=== PATIENT | male | born 1955 | race Caucasian/White ===

== ENCOUNTER 2019-07-09 08:02 | Emergency (ER) | payer OTHER, SELFPAY ==
[2019-07-09] VITALS (50 sets, daily range): BP systolic 132–167; BP diastolic 69–95; PULSE 93–126; RESP 14–33; TEMP 36.3; O2SAT 84–95
--- NOTE | 2019-07-09 08:08 | W.ED.GENAD ---
Discharge Plan Disposition Patient Disposition: [facility] Condition: Serious Discharge Details Chief Complaint: SOB Clinical Impression: Acute saddle pulmonary embolism, Bilateral pulmonary embolism Primary Care Provider: [facility] ED Provider: Radha Aguilera Home Meds and New Rx's Prescriptions: No Action omeprazole 20 MG capsule,delayed release(DR/EC) 20 mg PO BID RF: 0 furosemide 40 MG tablet 40 mg PO DAILY RF: 0 glyburide 2.5 MG tablet 2.5 mg PO DAILY RF: 0 sertraline 100 MG tablet 100 mg PO DAILY RF: 0 Foradil Aerolizer 1 PUFF capsule, w/inhalation device 1 cap Inhalation BID RF: 0 tamsulosin 0.4 MG capsule 0.4 mg PO DAILY RF: 0 metoprolol tartrate 25 MG tablet 25 mg PO DAILY RF: 0 albuterol sulfate [Proventil HFA] 1 PUFF HFA aerosol inhaler 1 puff PO PRN PRNRF: 0 spironolactone 100 MG tablet 150 mg PO DAILY Qty: 0 RF: 0 albuterol sulfate 2.5 MG/3 ML solution for nebulization 2.5 mg UPD Q2H PRN PRNRF: 0 Medical Decision Making 0810 -- 64-year-old male with a history of obesity, CHF, COPD, hypertension, hyperlipidemia, diabetes and GERD presents with intermittent chest tightness and shortness of breath for the past 2 weeks. Patient states his chest tightness is worse with deep breath, without radiation and sometimes better with rest. He states that shortness of breath is worse with exertion and when lying flat. He has been using a recliner for sleep for several years. He also has a history of sleep apnea but does not use CPAP as it has been uncomfortable for him. He states last night he felt like he stopped breathing when falling asleep and he states that this has never happened before. He admits to cough with occasional white sputum. He denies any known fever but does admit to decreased appetite recently. He denies any recent hospital admissions, recent travel, recent surgeries. He does admit to chronic intermittent leg swelling for which he uses compressive device as needed. Heart rate 120s, respirations mid 20s and O2 sat 89% on room air on arrival. He has good air movement throughout without obvious crackles, rales, wheezing or rhonchi. He has no lower extremity edema. EKG on arrival notes a rate of 129, sinus with occasional PVCs but no acute ST ischemic changes. Differential diagnosis includes PE, acute CHF, acute COPD, ACS, arrhythmia, dehydration, pneumonia, electrolyte abnormality. Do not suspect acute CHF or acute COPD as he has no obvious lung findings. Will give a DuoNeb and small bolus IV fluids. Labs ordered on arrival and note a normal white blood cell count, electrolytes. Magnesium 1.6, will replete. Troponin negative. BNP 421. Will refer for CT chest to rule out PE. 0910 -- pt reassessed - admits to some improvement in shortness of breath. Still with clear breath sounds, no wheezing, crackles or rhonchi. O2 sat 85% on RA, increased to 92% on 2L. 0940 -- CT reviewed with vrad -saddle pulmonary embolus with pulmonary emboli extending into upper lobes, right middle lobe and both lower lobes. Also noted to right ventricular dysfunction and unruptured aneurysm of the ascending aorta 5 cm with opacities left lower lobe which may represent atelectasis or pneumonia. Pt has no report of fever with purulent sputum with normal WBC so will hold on antibiotics at that time. Placed call to the [place] as patient is followed there. Also [facility] -- [facility]w [facility] - feels that pt is most appropriate for transfer to tertiary care facility. 1220 --patient accepted for transfer to [facility] to the ICU -accepting physician Dr. Desai. No further medication recommendations at this time. Patient may be appropriate for catheter driven thrombolysis. Patient hemodynamically stable without acute complaints prior to transfer. BP 134/73. HR 110s. Medical Records Medical records reviewed: Yes I reviewed the patient's medical records. Imaging Data Radiologic Study: Radiologist's impression: CT Angiography Chest With Contrast Exam date and time: 07/09/2019 8:55 AM Age: 64 years old Clinical indication: Shortness of breath TECHNIQUE: Imaging protocol: Computed tomographic angiography of the chest with intravenous contrast. 3D rendering: MIP and/or 3D reconstructed images were created by the technologist. COMPARISON: CR CHEST 2 VIEWS PA,LAT 09/02/2015 10:48 AM FINDINGS: Pulmonary arteries: Saddle pulmonary embolus. Pulmonary emboli extend into the upper lobes and right middle lobe and lingula and both lower lobes. Aorta: Unruptured aneurysm of the ascending aorta 5 cm. Lungs: Opacities in the left lower lobe may represent atelectasis or pneumonia. Pleural space: Unremarkable. No pneumothorax. No pleural effusion. Heart: Right ventricular dysfunction. Gallbladder and bile ducts: Gallstones in the gallbladder. Lymph nodes: Unremarkable. No enlarged lymph nodes. Bones/joints: Metallic foreign bodies within right ribs and right hemithorax Soft tissues: Unremarkable. IMPRESSION: 1. Saddle pulmonary embolus. Pulmonary emboli extend into the upper lobes and right middle lobe and lingula and both lower lobes. 2. Right ventricular dysfunction. 3. Unruptured aneurysm of the ascending aorta 5 cm. 4. Opacities in the left lower lobe may represent atelectasis or pneumonia. 5. Gallstones in the gallbladder. Lab Data Lab results reviewed: Yes I reviewed the patient's lab results. Labs: Laboratory Tests Range/Units 07/09/19 07/09/19 07/09/19 08:10 08:10 08:10 WBC (4.4-10.8) k/cumm 6.68 RBC (4.50-6.00) m/cumm 4.44 L Hgb (13.5-17.5) g/dL 15.3 Hct (40.0-50.0) % 45.2 MCV (80-95) fL 101.8 H MCH (27.0-33.0) pg 34.5 H MCHC (32.0-36.0) g/dL 33.8 RDW (11.8-14.1) % 15.0 H Plt Count (130-400) x1000/uL 170 MPV (8.0-11.0) fL 10.2 Immature Gran % % 0.1 Neutrophils % 50.6 Lymphocytes % 35.8 Monocytes % 9.4 Eosinophils % 3.4 Basophils % 0.7 Absolute Neutrophils (1.2-6.7) k/cumm 3.37 Absolute Lymphocytes (1.2-3.4) k/cumm 2.39 Absolute Monocytes (0.11-0.7) k/cumm 0.63 Absolute Eosinophils (0.0-0.7) k/cumm 0.23 Absolute Basophils (0.0-0.2) k/cumm 0.05 PT (9.3-11.0) sec INR (0.9-1.1) APTT (21.0-31.4) sec Sodium (136-145) mmol/L 138 Potassium (3.5-5.1) mmol/L 3.6 Chloride (98-107) mmol/L 100 Carbon Dioxide (21.0-32.0) mmol/L 25.4 Anion Gap (3-11) mmol/L 12.6 H BUN (7-18) mg/dL 12 Creatinine (0.70-1.30) mg/dL 0.98 Estimated GFR/1.73 m2 (mL/min/1.73m2) >= 60.00 Glucose (74-106) mg/dL 121 H Calcium (8.5-10.1) mg/dL 8.6 Magnesium (1.8-2.4) mg/dL 1.6 L Total Bilirubin (0.2-1.0) mg/dL 1.4 H AST (15-37) U/L 23 ALT (16-63) U/L 9 L Alkaline Phosphatase (46-116) U/L 94 Troponin I (<0.06) ng/Ml < 0.05 NT-Pro-B Natriuret Pep (<300) pg/mL 421 H Total Protein (6.4-8.2) g/dL 8.4 H Albumin (3.4-5.0) g/dL 3.4 Range/Units 07/09/19 08:10 WBC (4.4-10.8) k/cumm RBC (4.50-6.00) m/cumm Hgb (13.5-17.5) g/dL Hct (40.0-50.0) % MCV (80-95) fL MCH (27.0-33.0) pg MCHC (32.0-36.0) g/dL RDW (11.8-14.1) % Plt Count (130-400) x1000/uL MPV (8.0-11.0) fL Immature Gran % % Neutrophils % Lymphocytes % Monocytes % Eosinophils % Basophils % Absolute Neutrophils (1.2-6.7) k/cumm Absolute Lymphocytes (1.2-3.4) k/cumm Absolute Monocytes (0.11-0.7) k/cumm Absolute Eosinophils (0.0-0.7) k/cumm Absolute Basophils (0.0-0.2) k/cumm PT (9.3-11.0) sec 11.4 H INR (0.9-1.1) 1.1 APTT (21.0-31.4) sec 24.9 Sodium (136-145) mmol/L Potassium (3.5-5.1) mmol/L Chloride (98-107) mmol/L Carbon Dioxide (21.0-32.0) mmol/L Anion Gap (3-11) mmol/L BUN (7-18) mg/dL Creatinine (0.70-1.30) mg/dL Estimated GFR/1.73 m2 (mL/min/1.73m2) Glucose (74-106) mg/dL Calcium (8.5-10.1) mg/dL Magnesium (1.8-2.4) mg/dL Total Bilirubin (0.2-1.0) mg/dL AST (15-37) U/L ALT (16-63) U/L Alkaline Phosphatase (46-116) U/L Troponin I (<0.06) ng/Ml NT-Pro-B Natriuret Pep (<300) pg/mL Total Protein (6.4-8.2) g/dL Albumin (3.4-5.0) g/dL ECG Data Attestation: I personally reviewed and interpreted this ECG (s) as follows: Interpretation: rate of 129, sinus, occasional PVCs, no acute ST elevation or depression. KS 134, QTc 457, QRS 83. HPI General Mode of arrival: wheelchair. Date/Time Provider Initiated Documentation: 07/09/19 08:06. Limitations to Documentation: no limitations. Information obtained by: patient. History of Present Illness 64 year old M presents to the emergency department with the chief complaint of shortness of breath and chest discomfort , Quality is described as other (intermittent chest tightness), and is localized to the chest. Patient reports no radiation. Patient started experiencing this week(s) (2) and it has been intermittent. Rest improves symptom(s), Other factors that worsen symptoms (deep breath) . Patient notes chest pain (intermittent chest tightness, worse with exertion/deep breath), cough (occasional white sputum), loss of appetite (for 2 weeks) and shortness of breath (intermittent, worse with exertion/laying flat); denies fever/chills, headaches, malaise, nausea/vomiting, rash, seizure, syncope and weakness. Patient did receive the following treatments prior to arrival, none Related Data Home Medications Medication Instructions Recorded Confirmed Foradil Aerolizer 1 cap INHALATION BID 08/18/12 07/09/19 furosemide 40 mg PO DAILY 08/18/12 07/09/19 glyburide 2.5 mg PO DAILY 08/18/12 07/09/19 metoprolol tartrate 25 mg PO DAILY 08/18/12 07/09/19 omeprazole 20 mg PO BID 08/18/12 07/09/19 sertraline 100 mg PO DAILY 08/18/12 07/09/19 tamsulosin 0.4 mg PO DAILY 08/18/12 07/09/19 albuterol sulfate [Proventil HFA] 1 puff PO PRN PRN 09/02/15 07/09/19 albuterol sulfate 2.5 mg UPD Q2H PRN PRN vial 09/04/15 07/09/19 spironolactone 150 mg PO DAILY #0 09/04/15 07/09/19 Previous Rx's Medication Instructions Recorded albuterol sulfate 2.5 mg UPD Q2H PRN PRN vial 09/04/15 spironolactone 150 mg PO DAILY #0 09/04/15 Allergies Allergy/AdvReac Type Severity Reaction Status Date / Time niacin AdvReac Mild flushed Unverified 07/09/19 08:18 MRI AdvReac Contraindic Uncoded 07/09/19 08:18 ated Review of Systems All systems reviewed & are unremarkable except as noted in HPI and below Constitutional Constitutional: Reports as per HPI, Denies chills, Denies fever(s) and Reports poor appetite Eyes Eyes: Denies blurry vision ENT Ears, Nose, Mouth, and Throat: Denies dizziness, Denies sore throat and Denies throat swelling Cardiovascular Cardiovascular: Reports chest pain and Reports dyspnea Respiratory Respiratory: Reports cough and Reports dyspnea Gastrointestinal Gastrointestinal: Denies abdominal pain, Denies diarrhea and Denies vomiting Genitourinary Genitourinary: Denies hematuria and Denies dysuria Musculoskeletal Musculoskeletal: Denies back pain and Denies numbness Integumentary/Breasts Skin/Breast: Denies lesions and Denies rash Neurologic Neurologic: Denies dizziness, Denies focal weakness and Denies numbness Allergic/Immunologic Allergic/Immunologic: Denies throat swelling [facility] Medical History (Updated 07/09/19 @ 10:12 by Radha Aguilera DO) CHF (congestive heart failure) (Chronic) COPD (chronic obstructive pulmonary disease) (Chronic) Diabetes (Chronic) GERD (gastroesophageal reflux disease) (Chronic) HTN (hypertension) (Chronic) Hx of hyperlipidemia (Acute) Obesity (Chronic) Surgical History (Updated 07/09/19 @ 13:11 by Radha Aguilera DO) No significant past surgical history (Acute) Social History Smoking/Tobacco Use Status: Former Tobacco Use Alcohol Intake: former Drug use: Never Substance use type: does not use Exam Const General: cooperative, healthy appearing and no acute distress HENMT Head: normal to inspection Face and sinus: normal facial exam Eyes General: appearance normal, both eyes and all related structures EOM: EOM intact bilaterally Neck Neck: normal visual inspection and No submandibular swelling Lymphatic: no lymphadenopathy noted Chest Chest: normal inspection of the chest and no tenderness Resp Effort & Inspection: normal respiratory effort and able to speak in complete sentences Auscultation: clear to auscultation bilaterally Cardio Rate: regular rate Rhythm: regular rhythm GI Inspection: normal to inspection and obesity Palpation: soft, not firm, not rigid and nontender Auscultation: normal bowel sounds Skin General skin exam: no rashes or lesions noted Neuro General: alert, awake and oriented x3 Cognition: normal cognition Speech: speech normal Motor: muscle tone normal throughout Sensory Exam: no sensory deficits noted Extrem General: normal to inspection, full ROM, normal capillary refill, no calf tenderness bilaterally and no edema Psych Appearance: grossly normal Mental Status: mental status grossly normal Speech and Movement: speech and movement normal Affect: normal affect
[2019-07-09 08:34] LABS: Abs Immature Grans 0.01 k/cumm (0.0-0.09); Absolute Basophil Count 0.05 k/cumm (0.0-0.2); Absolute Eosinophil Count 0.23 k/cumm (0.0-0.7); Absolute Lymphocyte Count 2.39 k/cumm (1.2-3.4); Absolute Monocyte Count 0.63 k/cumm (0.11-0.7); Absolute Neutrophil Count 3.37 k/cumm (1.2-6.7); Basophils % 0.7; Eosinophils % 3.4; HCT 45.2 % (40.0-50.0); HGB 15.3 g/dL (13.5-17.5); Immature Grans % 0.1 %; Lymphocytes % 35.8; Mean Corp. HGB Concentration 33.8 g/dL (32.0-36.0); Mean Corpuscular Hemoglobin 34.5 pg (27.0-33.0); Mean Corpuscular Volume 101.8 fL (80-95); Mean Platelet Volume 10.2 fL (8.0-11.0); Monocytes % 9.4; Neutrophils % 50.6; Platelet Count 170 x1000/uL (130-400); RBC 4.44 m/cumm (4.50-6.00); White Blood Cell Count 6.68 k/cumm (4.4-10.8)
[2019-07-09] MEDS: Albuterol/Ipratropium 3 ML UPD VIAL UPD (08:34)
[2019-07-09] MEDS: Normal Saline 250 ML IV (08:36)
[2019-07-09 08:47] LABS: ALT 9 U/L (16-63); AST 23 U/L (15-37); Albumin 3.4 g/dL (3.4-5.0); Alkaline Phosphatase 94 U/L (46-116); Anion Gap 12.6 mmol/L (3-11); BUN 12 mg/dL (7-18); Bilirubin, Total 1.4 mg/dL (0.2-1.0); CO2 25.4 mmol/L (21.0-32.0); CREATININE 0.98 mg/dL (0.70-1.30); Calcium 8.6 mg/dL (8.5-10.1); Chloride 100 mmol/L (98-107); Glucose 121 mg/dL (74-106); Magnesium 1.6 mg/dL (1.8-2.4); Potassium 3.6 mmol/L (3.5-5.1); Sodium 138 mmol/L (136-145); Total Protein 8.4 g/dL (6.4-8.2)
[2019-07-09 08:50] LABS: Troponin I < 0.05 ng/Ml (<0.06)
[2019-07-09 08:53] LABS: NT-proBNP 421 pg/mL (<300)
[2019-07-09] MEDS: MAGNESIUM SULFATE 1 GM/100 ML BAG IVPB (09:03)
--- NOTE | 2019-07-09 09:12 | DI.CT_ITS ---
EXAM: CT CHEST PE CTA CLINICAL HISTORY: shortness of breath, hypoxia, pleuritic chest pain. TECHNIQUE: Imaging Protocol: Axial CT angiography was performed with multi-slice acquisition and mu lti-planar and/or 3D reconstructions. CONTRAST MATERIAL: Intravenous: Omnipaque 350 Contrast volume:88 mL COMPARISON: CHEST 2 VIEWS PA,LAT from 09/02/2015 FINDINGS: Pulmonary Arteries: There is a saddle embolus. There are emboli in pulmonary artery branches to all lobes of the lungs. Tracheobronchial tree: Patent where visualized. Mediastinum and Mary: No dominant adenopathy or fluid collection. Pulmonary parenchyma: There is an infiltrate seen in the left lower lobe. This may represent atelect asis or pneumonia. Pleura: No effusion or pneumothorax. Heart: There is evidence of right heart strain. Marked coronary artery calcification is present. No pericardial effusion is present. Aorta: The ascending aorta is aneurysmally dilated up to 5 centimeters. No rupture or dissection. T here is atherosclerosis. Upper abdomen: Cholelithiasis. Bones: Degenerative changes.There are again seen metallic densities overlying the right hemithorax. These are present on the prior chest x-ray. IMPRESSION: 1. Findings of pulmonary embolic disease with a saddle embolus. Pulmonary emboli are present involv ing all lobes of the lung. 2. Findings of right heart strain. 3. Unruptured 5 centimeter ascending aortic aneurysm. 4. Infiltrate in the left lower lobe which may represent atelectasis or pneumonia. 5. Cholelithiasis. DATA REPOSITORY: All CT scans at this facility are submitted to the National Radiology Data Registry (NRDR) Dose Index Registry (DIR) with the [employer] ([employer]). RADIATION OPTIMIZATION: All CT scans at this facility use at least one of these dose optimization te chniques: automated exposure control; mA and/or kV adjustment per patient size (includes targeted exa ms where dose is matched to clinical indication); or iterative reconstruction.
[2019-07-09] MEDS: Omnipaque 350 MG/ML 100 ML BTL 88 ML IJ (09:14)
[2019-07-09] MEDS: Normal Saline - Diluent 50 ML VIAL IV (09:22)
--- NOTE | 2019-07-09 09:45 | DI.VRAD_ITS ---
PROCEDURE INFORMATION: Exam: CT Angiography Chest With Contrast Exam date and time: 07/09/2019 8:55 AM Age: 64 years old Clinical indication: Shortness of breath TECHNIQUE: Imaging protocol: Computed tomographic angiography of the chest with intravenous contrast. 3D rendering: MIP and/or 3D reconstructed images were created by the technologist. COMPARISON: CR CHEST 2 VIEWS PA,LAT 09/02/2015 10:48 AM FINDINGS: Pulmonary arteries: Saddle pulmonary embolus. Pulmonary emboli extend into the upper lobes and right middle lobe and lingula and both lower lobes. Aorta: Unruptured aneurysm of the ascending aorta 5 cm. Lungs: Opacities in the left lower lobe may represent atelectasis or pneumonia. Pleural space: Unremarkable. No pneumothorax. No pleural effusion. Heart: Right ventricular dysfunction. Gallbladder and bile ducts: Gallstones in the gallbladder. Lymph nodes: Unremarkable. No enlarged lymph nodes. Bones/joints: Metallic foreign bodies within right ribs and right hemithorax Soft tissues: Unremarkable. IMPRESSION: 1. Saddle pulmonary embolus. Pulmonary emboli extend into the upper lobes and right middle lobe and lingula and both lower lobes. 2. Right ventricular dysfunction. 3. Unruptured aneurysm of the ascending aorta 5 cm. 4. Opacities in the left lower lobe may represent atelectasis or pneumonia. 5. Gallstones in the gallbladder. Dictated and Authenticated by: Dale Wu MD. Ordering:AMANDA Garcia MD
[2019-07-09 09:47] LABS: INR 1.1 (0.9-1.1); PTT Activated 24.9 sec (21.0-31.4); Prothrombin Time 11.4 sec (9.3-11.0)
[2019-07-09] MEDS: Normal Saline 500 ML IV (10:16)
[2019-07-09] MEDS: Metoprolol 25 MG TAB PO (11:31)
[2019-07-09] MEDS: Omeprazole 20 MG CAPCR PO (11:31)
[2019-07-09] MEDS: Tamsulosin 0.4 MG CAPCR PO (11:31)
[2019-07-09] MEDS: Spironolactone 50 MG TAB PO (11:32)
[2019-07-09] MEDS: Furosemide 40 MG TAB PO (11:32)
[2019-07-09] MEDS: Sertraline 50 MG TAB 100 MG PO (11:32)
[2019-07-09] MEDS: glyBURIDE 5 MG TAB 2.5 MG PO (11:32)
[2019-07-09] MEDS: Spironolactone 50 MG TAB 100 MG PO (11:32)
== END 2019-07-09 13:21 | disposition short-term general hospital (02) ==
PROVIDERS: Emergency Provider Physician Assistant
DX: I26.92 Saddle embolus of pulmonary artery without acute cor pulmonale (principal); I26.99 Other pulmonary embolism without acute cor pulmonale; E83.42 Hypomagnesemia; I71.2 Thoracic aortic aneurysm, without rupture; E11.9 Type 2 diabetes mellitus without complications; Z79.84 Long term (current) use of oral hypoglycemic drugs; J44.9 Chronic obstructive pulmonary disease, unspecified; Z87.891 Personal history of nicotine dependence; I11.0 Hypertensive heart disease with heart failure; I50.9 Heart failure, unspecified
CPT/HCPCS: 36415; 71275; 80053; 93005; 94640; 96361; 96365; 96372; 99285; 83735; 83880; 84484; 85025; 85610; 85730; 93010; J1650; J3475; J3490; J7620

== ENCOUNTER 2019-07-13 18:46 | Outpatient (REF) | payer OTHER, SELFPAY | END 2019-07-13 19:06 | LOC: LBN 18:46 | DX: R69 Illness, unspecified (principal) | CPT/HCPCS: 85610 ==

== ENCOUNTER 2019-09-04 20:34 | Inpatient (IN) | payer OTHER, SELFPAY ==
[2019-09-04] VITALS (27 sets, daily range): BP systolic 95–150; BP diastolic 58–93; PULSE 88–104; RESP 15–21; TEMP 37; O2SAT 91–97
--- NOTE | 2019-09-04 20:28 | ED.GENADUL_ITS ---
Discharge Plan Disposition Patient Disposition: [facility] INPATIENT Condition: Stable Discharge Details Chief Complaint: GenMedical Clinical Impression: Painless jaundice, Supratherapeutic INR, Transaminitis, Acute inflammation of the pancreas Clinical Impression: (Ruled Out): Jaundice Admit Date/Time: 09/04/19 22:58 Admit Provider: Sandoval Lou Attending Provider: Sandoval Lou Primary Care Provider: Adelina Crespo ED Provider: Radha Aguilera Discharge Data Discharge Date/Time-TO BE ENTERED AT DEPARTURE: 09/05/19 00:18 Medical Decision Making 2039 -- 64-year-old male with a history of morbid obesity, CHF, COPD, diabetes, GERD, hypertension, hyperlipidemia and recent pulmonary embolism on Coumadin who presents for evaluation of jaundice for the past week and for multiple lab abnormalities noted on blood work drawn today outpatient including INR 15, alk phos 783, AST 230, ALT 139, total bilirubin 18.9, indirect bilirubin 14.1. Patient's doctor at the [facility] advised to come to the ED for further evaluation. P vargas has no acute complaints. EKG on arrival notes a rate of 100, sinus with no acute ST ischemic changes. Patient appears significantly jaundiced with scleral icterus. He appears otherwise in no acute distress. His vitals are within normal limits and he appears nontoxic. He has right upper quadrant tenderness to palpation. The [facility] physician note noted that patient has a history of alcoholic cirrhosis and that on 08/22/2019 he is INR was 9.9 at which point it was held until 08/29 and decreased to 3.4. 2129 -- labs reviewed. INR resulted as greater than 8.8. PT greater than 83.4 PTT 69.9. T bili 16.2. AST 227. ALT 147. Alk phos 768. Troponin negative. Lipase normal. 2219 --CT reviewed and notes findings concerning for pancreatitis or possibly pancreatic neoplasm, pseudocyst or abscess, also noted cholelithiasis without cholecystitis or choledocholithiasis. Will give vitamin K p.o. Will plan for admission for recheck of INR and consideration for MRI for further evaluation of pancreas in the setting of painless jaundice. Pt states he would prefer to stay here rather than transfer to [place] 2229 -- d/w hospitalist - accepts pt for admission. Medical Records Medical records reviewed: Yes I reviewed the patient's medical records. Imaging Data Radiologic Study: Radiologist's impression: CT Abdomen And Pelvis With Contrast Exam date and time: 09/04/2019 9:03 PM Age: 64 years old Clinical indication: Abdominal pain; Generalized; Patient HX: Ruq pain, R/O liver disease TECHNIQUE: Imaging protocol: Computed tomography of the abdomen and pelvis with intravenous contrast. Radiation optimization: All CT scans at this facility use at least one of these dose optimization techniques: automated exposure control; mA and/or kV adjustment per patient size (includes targeted exams where dose is matched to clinical indication); or iterative reconstruction. Contrast material: OMNI-PAQUE; Contrast volume: 125 ml; Contrast route: IV; COMPARISON: No relevant prior studies available. FINDINGS: Lungs: The left lung base shows mild atelectatic changes. Liver: Normal. No mass. Gallbladder and bile ducts: There is a 2.8 cm gallstone in the gallbladder lumen. The common bile duct shows mild dilatation to 9 mm and tapers distally without evidence of choledocholithiasis. There is moderate intrahepatic biliary ductal dilatation. Pancreas: There is inflammatory stranding along the head of the pancreas and mild dilatation of the pancreatic duct. Spleen: Normal. No splenomegaly. Adrenals: The adrenal glands are normal. Kidneys and ureters: There are multiple bilateral renal collecting system calcifications, largest in the right kidney measuring 5.5 mm. In the left UVJ there is a minimally obstructing 4 mm calculus. Stomach and bowel: There is severe eccentric thickening of the wall of the gastric antrum with narrowing of the pylorus. There is thickening of the wall of the duodenum. There is inflammatory stranding in the retroperitoneal fat. There is no evidence of small bowel or colonic obstruction. Appendix: The appendix is not identified. Intraperitoneal space: Along the anterolateral surface of the liver and extending to the hepatic flexure, there is an elongated fluid collection measuring 10.4 x 2.2 x 5.2 cm. There is a small amount of free fluid tracking along the root of the mesentery. There is no evidence of free fluid in the pelvis. No line no free intraperitoneal air. Vasculature: There is moderate atherosclerotic calcification of the abdominal aorta and iliac arteries without aneurysm. Lymph nodes: There are nonenlarged common nonspecific retroperitoneal lymph nodes. Bladder: Unremarkable as visualized. Reproductive: Unremarkable as visualized. Bones/joints: The spine demonstrates moderate degenerative changes at multiple levels. Soft tissues: In the subcutaneous soft tissues of the anterior left hemipelvis, there is a 2.3 mm collection perhaps are the subcutaneous injection site, possible hematoma. IMPRESSION: 1. Findings may be secondary to pancreatitis with secondary inflammatory changes of the gastric antrum and duodenal sweep as well as biliary and pancreatic ductal dilatation. However, given severe thickening of the wall of the gastric antrum and pylorus, neoplasm is in the differential diagnosis and correlation with endoscopy is recommended. 2. A fluid collection along the anterolateral aspect of the liver, possibly a pancreatic pseudocyst or abscess. 3. Cholelithiasis without evidence of choledocholithiasis. 4. A minimally obstructing 4 mm calculus in the left UVJ. Bilateral nonobstructing nephrolithiasis. 5. A 2.3 cm fluid collection in the subcutaneous soft tissues of the left anterior hemipelvis suggestive of a hematoma the at an injection site. Lab Data Lab results reviewed: Yes I reviewed the patient's lab results. Labs: Laboratory Tests Range/Units 09/04/19 09/04/19 09/04/19 20:50 20:50 20:50 WBC (4.4-10.8) k/cumm 9.41 RBC (4.50-6.00) m/cumm 3.73 L Hgb (13.5-17.5) g/dL 12.5 L Hct (40.0-50.0) % 34.2 L MCV (80-95) fL 91.7 MCH (27.0-33.0) pg 33.5 H MCHC (32.0-36.0) g/dL 36.5 H RDW (11.8-14.1) % 16.3 H Plt Count (130-400) x1000/uL 225 MPV (8.0-11.0) fL 11.3 H Immature Gran % % 0.2 Neutrophils % 71.0 Lymphocytes % 17.6 Monocytes % 9.2 Eosinophils % 1.6 Basophils % 0.4 Absolute Neutrophils (1.2-6.7) k/cumm 6.67 Absolute Lymphocytes (1.2-3.4) k/cumm 1.66 Absolute Monocytes (0.11-0.7) k/cumm 0.87 H Absolute Eosinophils (0.0-0.7) k/cumm 0.15 Absolute Basophils (0.0-0.2) k/cumm 0.04 PT (9.3-11.0) sec > 83.4 H INR (0.9-1.1) > 8.8 H* APTT (21.0-31.4) sec 69.9 H Sodium (136-145) mmol/L 131 L Potassium (3.5-5.1) mmol/L 3.8 Chloride (98-107) mmol/L 95 L Carbon Dioxide (21.0-32.0) mmol/L 25.0 Anion Gap (3-11) mmol/L 11.0 BUN (7-18) mg/dL 27 H Creatinine (0.70-1.30) mg/dL 1.31 H Estimated GFR/1.73 m2 (mL/min/1.73m2) 54.74 Glucose (74-106) mg/dL 127 H Calcium (8.5-10.1) mg/dL 8.4 L Magnesium (1.8-2.4) mg/dL 1.2 L Total Bilirubin (0.2-1.0) mg/dL 16.2 H AST (15-37) U/L 227 H ALT (16-63) U/L 147 H Alkaline Phosphatase (46-116) U/L 768 H Troponin I (<0.06) ng/Ml < 0.05 Total Protein (6.4-8.2) g/dL 7.8 Albumin (3.4-5.0) g/dL 2.9 L Lipase (73-393) U/L Range/Units 09/04/19 20:50 WBC (4.4-10.8) k/cumm RBC (4.50-6.00) m/cumm Hgb (13.5-17.5) g/dL Hct (40.0-50.0) % MCV (80-95) fL MCH (27.0-33.0) pg MCHC (32.0-36.0) g/dL RDW (11.8-14.1) % Plt Count (130-400) x1000/uL MPV (8.0-11.0) fL Immature Gran % % Neutrophils % Lymphocytes % Monocytes % Eosinophils % Basophils % Absolute Neutrophils (1.2-6.7) k/cumm Absolute Lymphocytes (1.2-3.4) k/cumm Absolute Monocytes (0.11-0.7) k/cumm Absolute Eosinophils (0.0-0.7) k/cumm Absolute Basophils (0.0-0.2) k/cumm PT (9.3-11.0) sec INR (0.9-1.1) APTT (21.0-31.4) sec Sodium (136-145) mmol/L Potassium (3.5-5.1) mmol/L Chloride (98-107) mmol/L Carbon Dioxide (21.0-32.0) mmol/L Anion Gap (3-11) mmol/L BUN (7-18) mg/dL Creatinine (0.70-1.30) mg/dL Estimated GFR/1.73 m2 (mL/min/1.73m2) Glucose (74-106) mg/dL Calcium (8.5-10.1) mg/dL Magnesium (1.8-2.4) mg/dL Total Bilirubin (0.2-1.0) mg/dL AST (15-37) U/L ALT (16-63) U/L Alkaline Phosphatase (46-116) U/L Troponin I (<0.06) ng/Ml Total Protein (6.4-8.2) g/dL Albumin (3.4-5.0) g/dL Lipase (73-393) U/L 114 ECG Data Attestation: I personally reviewed and interpreted this ECG (s) as follows: Interpretation: Rate of 100, sinus, no acute ST elevation or depression. IN 154. QTc 431. QRS 88. HPI General Mode of arrival: EMS . Date/Time Provider Initiated Documentation: 09/04/19 20:42 . Limitations to Documentation: no limitations . Information obtained by: patient . HPI Narrative: Patient is a 64-year-old male with a history of obesity, CHF, COPD, diabetes, GERD, hypertension, hyperlipidemia and recent pulmonary embolism on Coumadin who presents for jaundice over the past week and multiple lab abnormalities drawn on outpatient lab work today including INR 15, bilirubin of 18, direct bilirubin of 14, alk phos of 73, AST of 230, and ALT of 139. [facility] was [facility] to the ED for further evaluation. Patient stated that he was previously an alcoholic but now only drinks occasionally. He states he drank 1 week ago and then drank a half a pint of liquor 3 days ago. He denies any drug use. He states he has no symptoms other than occasionally feeling his chronic back pain. He denies any fever, chest pain, shortness of breath, abdominal pain, vomiting, diarrhea. He denies any other recent new medications including antibiotics. Related Data Home Medications Medication Instructions Recorded Confirmed Foradil Aerolizer 1 cap INHALATION BID 08/18/12 09/04/19 furosemide 40 mg PO DAILY 08/18/12 09/04/19 metoprolol tartrate 25 mg PO DAILY 08/18/12 09/04/19 omeprazole 20 mg PO BID 08/18/12 09/04/19 sertraline 100 mg PO DAILY 08/18/12 09/04/19 tamsulosin 0.4 mg PO DAILY 08/18/12 09/04/19 albuterol sulfate [Proventil HFA] 1 puff PO PRN PRN 09/02/15 09/04/19 albuterol sulfate 2.5 mg UPD Q2H PRN PRN vial 09/04/15 09/04/19 spironolactone 150 mg PO DAILY #0 09/04/15 09/04/19 warfarin 5 mg PO DAILY 09/04/19 09/04/19 Previous Rx's Medication Instructions Recorded albuterol sulfate 2.5 mg UPD Q2H PRN PRN vial 09/04/15 spironolactone 150 mg PO DAILY #0 09/04/15 Allergies Allergy/AdvReac Type Severity Reaction Status Date / Time niacin AdvReac Mild flushed Unverified 09/04/19 20:40 MRI AdvReac Contraindic Uncoded 09/04/19 20:40 ated General MARILUZ: 2 Review of Systems All systems reviewed & are unremarkable except as noted in HPI and below Constitutional Constitutional: Reports as per HPI, Denies chills and Denies fever(s) Eyes Eyes: Denies blurry vision ENT Ears, Nose, Mouth, and Throat: Denies dizziness, Denies sore throat and Denies throat swelling Cardiovascular Cardiovascular: Denies chest pain and Denies dyspnea Respiratory Respiratory: Denies cough and Denies dyspnea Gastrointestinal Gastrointestinal: Denies abdominal pain, Denies diarrhea and Denies vomiting Genitourinary Genitourinary: Denies hematuria and Denies dysuria Musculoskeletal Musculoskeletal: Denies back pain and Denies numbness Integumentary/Breasts Skin/Breast: Denies lesions and Denies rash Neurologic Neurologic: Denies dizziness, Denies localized weakness and Denies numbness Allergic/Immunologic Allergic/Immunologic: Denies throat swelling [facility] Medical History CHF (congestive heart failure) (Chronic) COPD (chronic obstructive pulmonary disease) (Chronic) Diabetes (Chronic) GERD (gastroesophageal reflux disease) (Chronic) HTN (hypertension) (Chronic) Hx of hyperlipidemia (Acute) Obesity (Chronic) Pulmonary embolism (Chronic) jul 2019 Surgical History No significant past surgical history (Acute) Social History Smoking/Tobacco Use Status: Former Tobacco Use Alcohol Intake: former Drug use: Never Substance use type: does not use Details: last drink was half a pint last wednesday Do you feel safe at home: Yes Do you feel safe in your relationship?: Yes Exam Const General: cooperative and no acute distress Nutritional Appearance: obese morbidly obese Orientation: alert, awake and oriented x3 HENMT Head: normal to inspection Face and sinus: normal facial exam Eyes General: appearance normal, both eyes and all related structures Sclera: scleral abnormality bilaterally other (scleral icterus) Pupils: PERRL EOM: EOM intact bilaterally Neck Neck: normal visual inspection and No submandibular swelling Lymphatic: no lymphadenopathy noted Chest Chest: normal inspection of the chest and no tenderness Resp Effort & Inspection: normal respiratory effort and able to speak in complete sentences Auscultation: clear to auscultation bilaterally Cardio Rate: regular rate Rhythm: regular rhythm GI Inspection: no abdominal wall ecchymosis, non-distended, obesity and No caput medusae present Palpation: soft, not firm, not rigid and tender in the RUQ Auscultation: hypoactive bowel sounds Skin General skin exam: jaundice Neuro General: patient alert, patient awake and patient oriented x3 Cognition: normal cognition Speech: speech normal Motor: muscle tone normal throughout Sensory Exam: no sensory deficits noted Extrem General: normal to inspection, full ROM, capillary refill normal, no calf tenderness bilaterally and no edema Psych Appearance: grossly normal Mental Status: mental status grossly normal Speech and Movement: speech and movement normal Affect: normal affect
--- NOTE | 2019-09-04 21:00 | DI.CT_ITS ---
EXAM: CT ABDOMEN PELVIS W CLINICAL HISTORY: RUQ abd pain, r/o liver disease. TECHNIQUE: Imaging Protocol: Axial computed tomography images with coronal and sagittal reformatted images were created and reviewed CONTRAST MATERIAL: Intravenous: Omnipaque 350 Contrast volume:125 cc Oral: no COMPARISON: CT CHEST PE CTA from 07/09/2019 FINDINGS: ABDOMEN: The exam is mildly limited by patient motion. Lung Bases: Mild basilar atelectasis. The heart size is normal. Coronary artery calcifications are seen. There are no pleural or pericardial effusions. There is minimal basilar atelectasis. There i s improvement when compared with the previous CT. Liver: The liver is mildly enlarged and shows mild fatty infiltration. No measurable mass. A fluid c ollection is seen anterior to the right lobe of the liver which was partially seen on the previous ex am. It does not have the appearance of an abscess. Gallbladder and biliary tract: Several gallstones are again noted in the gallbladder. The gallbladde r appears somewhat distended and thick walled. The gallbladder was not fully included on the previou s exam. There is some dilatation of the common bile duct. No common duct stone is visible. The com mon duct measures 11 millimeters. There is mild intrahepatic biliary dilatation.. Pancreas: The pancreas is somewhat atrophic. There is some stranding seen around the pancreas consis tent with pancreatitis. There is adjacent duodenal wall thickening. There is no evidence perforatio n or pseudocyst.. Spleen: Normal. Kidneys: Normal size, contour and axis. There are multiple bilateral renal calculi. No masses seen. There is a stone seen at the left ureterovesical junction measuring 3 millimeters. There is no sig nificant left hydronephrosis. Adrenal glands: No masses seen. Abdominal Aorta: Abdominal portion non-dilated. Moderate calcifications. PELVIS: Bladder: Symmetric distention, no gross wall thickening. Bowel: No obstruction or bowel wall thickening. Peritoneal cavity: No ascites. There are increased areas of increased rounded density in the anterior abdominal wall likely representing injection sites. Bones: Degenerative changes are seen in the lumbar spine.. Reproductive organs: Within normal limits. Lymph nodes: Unremarkable. Impression: 1. Findings consistent with pancreatitis adjacent inflammation of the duodenum. There are gallstone s as well as dilatation of the common bile duct and intrahepatic hepatic ducts. No common duct stone is seen. 2. Bilateral renal calculi. 4 millimeter stone at the left ureterovesical junction without signific ant left hydronephrosis. DATA REPOSITORY: All CT scans at this facility are submitted to the National Radiology Data Registry (NRDR) Dose Index Registry (DIR) with the [employer] (ACR). RADIATION OPTIMIZATION: All CT scans at this facility use at least one of these dose optimization te chniques: automated exposure control; mA and/or kV adjustment per patient size (includes targeted exa ms where dose is matched to clinical indication); or iterative reconstruction.
[2019-09-04 21:01] LABS: Abs Immature Grans 0.02 k/cumm (0.0-0.09); Absolute Basophil Count 0.04 k/cumm (0.0-0.2); Absolute Eosinophil Count 0.15 k/cumm (0.0-0.7); Absolute Lymphocyte Count 1.66 k/cumm (1.2-3.4); Absolute Monocyte Count 0.87 k/cumm (0.11-0.7); Absolute Neutrophil Count 6.67 k/cumm (1.2-6.7); Basophils % 0.4; Eosinophils % 1.6; HCT 34.2 % (40.0-50.0); HGB 12.5 g/dL (13.5-17.5); Immature Grans % 0.2 %; Lymphocytes % 17.6; Mean Corp. HGB Concentration 36.5 g/dL (32.0-36.0); Mean Corpuscular Hemoglobin 33.5 pg (27.0-33.0); Mean Corpuscular Volume 91.7 fL (80-95); Mean Platelet Volume 11.3 fL (8.0-11.0); Monocytes % 9.2; Platelet Count 225 x1000/uL (130-400); RBC 3.73 m/cumm (4.50-6.00); RBC Distribution Width 16.3 % (11.8-14.1); White Blood Cell Count 9.41 k/cumm (4.4-10.8)
[2019-09-04] MEDS: Omnipaque 350 MG/ML 100 ML BTL IJ (21:12)
[2019-09-04] MEDS: Omnipaque 350 MG/ML 50 ML BTL IJ (21:13)
[2019-09-04] MEDS: Normal Saline - Diluent 50 ML VIAL IV (21:13)
[2019-09-04 21:14] LABS: PTT Activated 69.9 sec (21.0-31.4)
[2019-09-04 21:19] LABS: ALT 147 U/L (16-63); AST 227 U/L (15-37); Albumin 2.9 g/dL (3.4-5.0); Alkaline Phosphatase 768 U/L (46-116); BUN 27 mg/dL (7-18); CREATININE 1.31 mg/dL (0.70-1.30); Calcium 8.4 mg/dL (8.5-10.1); Chloride 95 mmol/L (98-107); Estimated GFR 54.74 (mL/min/1.73m2); Glucose 127 mg/dL (74-106); Magnesium 1.2 mg/dL (1.8-2.4); Potassium 3.8 mmol/L (3.5-5.1); Sodium 131 mmol/L (136-145); Total Protein 7.8 g/dL (6.4-8.2)
[2019-09-04 21:26] LABS: Bilirubin, Total 16.2 mg/dL (0.2-1.0); Troponin I < 0.05 ng/Ml (<0.06)
[2019-09-04 21:33] LABS: Lipase 114 U/L (73-393)
[2019-09-04 21:41] LABS: Prothrombin Time > 83.4 sec (9.3-11.0)
[2019-09-04 21:43] LABS: INR > 8.8 (0.9-1.1)
--- NOTE | 2019-09-04 22:33 | DI.VRAD_ITS ---
PROCEDURE INFORMATION: Exam: CT Abdomen And Pelvis With Contrast Exam date and time: 09/04/2019 9:03 PM Age: 64 years old Clinical indication: Abdominal pain; Generalized; Patient HX: Ruq pain, R/O liver disease TECHNIQUE: Imaging protocol: Computed tomography of the abdomen and pelvis with intravenous contrast. Radiation optimization: All CT scans at this facility use at least one of these dose optimization techniques: automated exposure control; mA and/or kV adjustment per patient size (includes targeted exams where dose is matched to clinical indication); or iterative reconstruction. Contrast material: OMNI-PAQUE; Contrast volume: 125 ml; Contrast route: IV; COMPARISON: No relevant prior studies available. FINDINGS: Lungs: The left lung base shows mild atelectatic changes. Liver: Normal. No mass. Gallbladder and bile ducts: There is a 2.8 cm gallstone in the gallbladder lumen. The common bile duct shows mild dilatation to 9 mm and tapers distally without evidence of choledocholithiasis. There is moderate intrahepatic biliary ductal dilatation. Pancreas: There is inflammatory stranding along the head of the pancreas and mild dilatation of the pancreatic duct. Spleen: Normal. No splenomegaly. Adrenals: The adrenal glands are normal. Kidneys and ureters: There are multiple bilateral renal collecting system calcifications, largest in the right kidney measuring 5.5 mm. In the left UVJ there is a minimally obstructing 4 mm calculus. Stomach and bowel: There is severe eccentric thickening of the wall of the gastric antrum with narrowing of the pylorus. There is thickening of the wall of the duodenum. There is inflammatory stranding in the retroperitoneal fat. There is no evidence of small bowel or colonic obstruction. Appendix: The appendix is not identified. Intraperitoneal space: Along the anterolateral surface of the liver and extending to the hepatic flexure, there is an elongated fluid collection measuring 10.4 x 2.2 x 5.2 cm. There is a small amount of free fluid tracking along the root of the mesentery. There is no evidence of free fluid in the pelvis. No line no free intraperitoneal air. Vasculature: There is moderate atherosclerotic calcification of the abdominal aorta and iliac arteries without aneurysm. Lymph nodes: There are nonenlarged common nonspecific retroperitoneal lymph nodes. Bladder: Unremarkable as visualized. Reproductive: Unremarkable as visualized. Bones/joints: The spine demonstrates moderate degenerative changes at multiple levels. Soft tissues: In the subcutaneous soft tissues of the anterior left hemipelvis, there is a 2.3 mm collection perhaps are the subcutaneous injection site, possible hematoma. IMPRESSION: 1. Findings may be secondary to pancreatitis with secondary inflammatory changes of the gastric antrum and duodenal sweep as well as biliary and pancreatic ductal dilatation. However, given severe thickening of the wall of the gastric antrum and pylorus, neoplasm is in the differential diagnosis and correlation with endoscopy is recommended. 2. A fluid collection along the anterolateral aspect of the liver, possibly a pancreatic pseudocyst or abscess. 3. Cholelithiasis without evidence of choledocholithiasis. 4. A minimally obstructing 4 mm calculus in the left UVJ. Bilateral nonobstructing nephrolithiasis. 5. A 2.3 cm fluid collection in the subcutaneous soft tissues of the left anterior hemipelvis suggestive of a hematoma the at an injection site. Dictated and Authenticated by: Gaurav Mackay MD. Ordering:AMANDA Garcia MD
--- NOTE | 2019-09-04 22:35 | HPE_ITS ---
Date of service: 09/04/19 Time of Service: 22:35 Assessment and Plan Assessment and plan (1) Painless jaundice: Status: Acute Assessment and plan: Painless jaundice. Obstructive lesion likely, and consistent with predominant direct bilirubinemia. CT suggests lesion in vicinity of pylorus. However, there is also element of hepatocellular injury, and h/o alcohol, so may be playing a role. There is also recent Coumadin and DILI is to be considered. Will hold Coumadin, give vitamin K, follow LFTS, check COCO and viral serology and advise EGD and/or MRI (will review films with Radiology further in AM). Will have NPO pending possible EGD. Reviewed advance directives, requests Full Code. History of Present Illness History of Present Illness Chief Complaint: painless jaundice Narrative: 64 male with self reported remote history of alcoholic cirrhosis, but normal LFTs l ast month. Started on Coumadin last month for PE (saddle embolus requiring thrombectomy). On routine lab follow up today was noted to be jaundiced (verbal report of tbili 18, direct bili 15), was sent here for further evaluation. Denies abdominal pain or nausea. Only new med is Coumdain. Amits to dinking 1/2 pint several days ago but says he has not cami drinking otherwise. Here findings of note for gross jaundice, inr >8, albumin 2.9, AST 227, ALT 147, T Bili 16.2, Alk Phos 768. CT shows thickening gastric antrum and narrowing of pylorus along with thickening of duodenum. Given Vitamin K and admitted for further evaluation Review of Systems All systems reviewed & are unremarkable except as noted in HPI and below PFSH Medical History CHF (congestive heart failure) (Chronic) COPD (chronic obstructive pulmonary disease) (Chronic) Diabetes (Chronic) GERD (gastroesophageal reflux disease) (Chronic) HTN (hypertension) (Chronic) Hx of hyperlipidemia (Acute) Obesity (Chronic) Pulmonary embolism (Chronic) jul 2019 Surgical History No significant past surgical history (Acute) Social History Smoking/Tobacco Use Status: Former Tobacco Use Alcohol Intake: former Drug use: Never Substance use type: does not use Details: last drink was half a pint last wednesday Do you feel safe at home: Yes Do you feel safe in your relationship?: Yes Meds Home Medications and Allergies Home Medications Medication Instructions Recorded Confirmed Type Foradil Aerolizer 1 cap INHALATION BID 08/18/12 09/04/19 History furosemide 40 mg PO DAILY 08/18/12 09/04/19 History metoprolol tartrate 25 mg PO DAILY 08/18/12 09/04/19 History omeprazole 20 mg PO BID 08/18/12 09/04/19 History sertraline 100 mg PO DAILY 08/18/12 09/04/19 History tamsulosin 0.4 mg PO DAILY 08/18/12 09/04/19 History albuterol sulfate [Proventil HFA] 1 puff PO PRN PRN 09/02/15 09/04/19 History albuterol sulfate 2.5 mg UPD Q2H PRN PRN vial 09/04/15 09/04/19 Rx spironolactone 150 mg PO DAILY #0 09/04/15 09/04/19 Rx warfarin 5 mg PO DAILY 09/04/19 09/04/19 History Allergies Allergy/AdvReac Type Severity Reaction Status Date / Time niacin AdvReac Mild flushed Unverified 09/04/19 20:40 MRI AdvReac Contraindic Uncoded 09/04/19 20:40 ated Exam Narrative Exam Narrative: 105/78, 99, 37.0, 18. HEENT grosly jaundiced; nck supple; lungs yareli; heart RRR w/o MRG' abomn sift and NT w/o HSM; extremities w/o edema; nuo o x3, non-foal, no asterixis Results Labs Result diagrams: 09/04/19 20:50 09/04/19 20:50 Labs: Laboratory Results - last 24 hr 09/04/19 09/04/19 09/04/19 20:50 20:50 20:50 WBC 9.41 RBC 3.73 L Hgb 12.5 L Hct 34.2 L MCV 91.7 MCH 33.5 H MCHC 36.5 H RDW 16.3 H Plt Count 225 MPV 11.3 H Immature Gran % 0.2 Neutrophils % 71.0 Lymphocytes % 17.6 Monocytes % 9.2 Eosinophils % 1.6 Basophils % 0.4 Absolute Neutrophils 6.67 Absolute Lymphocytes 1.66 Absolute Monocytes 0.87 H Absolute Eosinophils 0.15 Absolute Basophils 0.04 PT > 83.4 H INR > 8.8 H* APTT 69.9 H Sodium 131 L Potassium 3.8 Chloride 95 L Carbon Dioxide 25.0 Anion Gap 11.0 BUN 27 H Creatinine 1.31 H Estimated GFR/1.73 m2 54.74 Glucose 127 H Calcium 8.4 L Magnesium 1.2 L Total Bilirubin 16.2 H AST 227 H ALT 147 H Alkaline Phosphatase 768 H Troponin I < 0.05 Total Protein 7.8 Albumin 2.9 L Lipase 09/04/19 20:50 WBC RBC Hgb Hct MCV MCH MCHC RDW Plt Count MPV Immature Gran % Neutrophils % Lymphocytes % Monocytes % Eosinophils % Basophils % Absolute Neutrophils Absolute Lymphocytes Absolute Monocytes Absolute Eosinophils Absolute Basophils PT INR APTT Sodium Potassium Chloride Carbon Dioxide Anion Gap BUN Creatinine Estimated GFR/1.73 m2 Glucose Calcium Magnesium Total Bilirubin AST ALT Alkaline Phosphatase Troponin I Total Protein Albumin Lipase 114 Last Vital Signs Temp 37.0 C 09/04/19 20:34 Pulse 99 H 09/04/19 20:34 Resp 18 09/04/19 20:44 BP 105/78 09/04/19 20:34 Pulse Ox 96 09/04/19 20:34 COVID-19 Screening Traveled to [place] from one of the affected countries or regions?: No Recent travel in the [place] within the last 8 weeks?: No Recent out of the country travel within the last 8 weeks?: No Exposure or possible exposure to illness during travel?: No Had IN PERSON contact w/suspected or confirmed C-19 person: No Have you had the following symptoms in the past few days?: No Symptoms noted since travel?: No Symptoms
[2019-09-04] MEDS: Phytonadione 5 MG TABLET PO (22:51)
[2019-09-05] MEDS: Lactated Ringers 1,000 ML 80 ML IV (01:09)
[2019-09-05 01:14] VITALS: BP 114/77; PULSE 91; RESP 20; TEMP 37.2; O2SAT 96
[2019-09-05 07:19] VITALS: BP 123/76; PULSE 95; RESP 17; TEMP 36.8; O2SAT 96
[2019-09-05 07:22] LABS: ALT 168 U/L (16-63); AST 276 U/L (15-37)
[2019-09-05 07:28] LABS: Bilirubin, Total 17.1 mg/dL (0.2-1.0)
[2019-09-05 08:23] LABS: Prothrombin Time > 83.4 sec (9.3-11.0)
[2019-09-05 08:24] LABS: INR > 8.8 (0.9-1.1)
[2019-09-05 08:28] LABS: Anion Gap 12.2 mmol/L (3-11); BUN 25 mg/dL (7-18); CO2 24.8 mmol/L (21.0-32.0); CREATININE 1.08 mg/dL (0.70-1.30); Calcium 8.6 mg/dL (8.5-10.1); Chloride 96 mmol/L (98-107); Glucose 116 mg/dL (74-106); HCT 35.7 % (40.0-50.0); HGB 12.7 g/dL (13.5-17.5); Mean Corp. HGB Concentration 35.6 g/dL (32.0-36.0); Mean Corpuscular Hemoglobin 33.2 pg (27.0-33.0); Mean Corpuscular Volume 93.5 fL (80-95); Mean Platelet Volume 11.8 fL (8.0-11.0); Platelet Count 215 x1000/uL (130-400); Potassium 3.4 mmol/L (3.5-5.1); RBC 3.82 m/cumm (4.50-6.00); Sodium 133 mmol/L (136-145); White Blood Cell Count 8.17 k/cumm (4.4-10.8)
[2019-09-05] MEDS: Phytonadione 10 MG/ML AMP SC (08:45)
[2019-09-05] MEDS: Omeprazole 20 MG CAPCR PO (08:45)
[2019-09-05] MEDS: Metoprolol 25 MG TAB PO (08:45)
[2019-09-05] MEDS: Tamsulosin 0.4 MG CAPCR PO (08:46)
[2019-09-05 08:51] LABS: Magnesium 1.4 mg/dL (1.8-2.4)
--- NOTE | 2019-09-05 09:19 | PHA.ADMREV ---
Pharmacy Clinical Review - Admission Clinical Review (Last Reviewed 09/04/19 @ 22:42 by Sandoval Lou MD) Painless jaundice (Acute) Supratherapeutic INR (Acute) Transaminitis (Acute) Jaundice (Acute) niacin Adverse Reaction (Mild, Unverified 09/04/19 20:40) flushed MRI Adverse Reaction (Uncoded 09/04/19 20:40) Contraindicated Height 5 ft 9 in Weight 141.9 kg - Renal Dosing Renal Dosing: BUN 25 mg/dL (7-18) H 09/05/19 06:30 Creatinine 1.08 mg/dL (0.70-1.30) 09/05/19 06:30 Medications needing adjustments: Reviewed (CRCL ~67ML/MIN) - Anticoagulation Anticoagulation: Hgb 12.7 g/dL (13.5-17.5) L 09/05/19 06:30 Hct 35.7 % (40.0-50.0) L 09/05/19 06:30 Plt Count 215 x1000/uL (130-400) 09/05/19 06:30 INR > 8.8 (0.9-1.1) H* 09/05/19 06:30 Creatinine 1.08 mg/dL (0.70-1.30) 09/05/19 06:30 DVT Prohphylaxis: Reviewed (HIGH INR) Therapeutic Anticoagulation: Reviewed (High INR VIT K given) - Opiate Usage Evaluate Pain Scale/Pains Meds: Reviewed (0/10) Scheduled Bowel Reg ordered if on Opiates?: No (NPO at this time) - Relevant Labs Sodium 133 mmol/L (136-145) L 09/05/19 06:30 Potassium 3.4 mmol/L (3.5-5.1) L 09/05/19 06:30 Chloride 96 mmol/L (98-107) L 09/05/19 06:30 Magnesium 1.4 mg/dL (1.8-2.4) L 09/05/19 06:30 Electrolytes, C-Reactive P, ESR: Reviewed - Antimicrobial Stewardship Antibiotic appropriateness: N/A Surgical Abx d/c within 24 hr: N/A - DM Control DM Control: Glucose 116 mg/dL (74-106) H 09/05/19 06:30 Insulin Dosing: N/A - Heart Failure/MN Heart Failure/MN: Troponin I < 0.05 ng/Ml (<0.06) 09/04/19 20:50 EF%, BRYCE's, B-Blockers, Diuretics: N/A - BP Control BP Control: Blood Pressure 123/76 Blood Pressure 114/77 Blood Pressure 125/78 Blood Pressure 117/67 Blood Pressure 120/69 Blood Pressure 115/73 Blood Pressure 150/93 Blood Pressure 125/71 Blood Pressure 138/83 Blood Pressure 116/67 Blood Pressure 121/70 If elevated: N/A - QTc Review If Elevated: Reviewed (431) - IV to PO Switch IV Medications: N/A - Home Meds Home Med List reviewed: Reviewed ([facility] med no longer available in [place]) - Current meds Current Medication Order Review: Reviewed (home meds not ordered; spironolactone, furosemide, sertraline)
--- NOTE | 2019-09-05 09:20 | W.SURGCON ---
Date of service: 09/05/19 Time of Service: 09:20 [facility] Medical History CHF (congestive heart failure) (Chronic) COPD (chronic obstructive pulmonary disease) (Chronic) Diabetes (Chronic) GERD (gastroesophageal reflux disease) (Chronic) HTN (hypertension) (Chronic) Hx of hyperlipidemia (Acute) Obesity (Chronic) Pulmonary embolism (Chronic) jul 2019 Surgical History No significant past surgical history (Acute) Social History Smoking/Tobacco Use Status: Former Tobacco Use Alcohol Intake: former Drug use: Never Substance use type: does not use Details: last drink was half a pint last wednesday Do you feel safe at home: Yes Do you feel safe in your relationship?: Yes Results Last Vital Signs Temp 36.8 C 09/05/19 07:19 Pulse 95 H 09/05/19 07:19 Resp 17 09/05/19 07:19 BP 123/76 09/05/19 07:19 Pulse Ox 96 09/05/19 07:19 Labs Result diagrams: 09/05/19 06:30 09/05/19 06:30 Labs: Laboratory Results - last 24 hr 09/04/19 09/04/19 09/04/19 20:50 20:50 20:50 WBC 9.41 RBC 3.73 L Hgb 12.5 L Hct 34.2 L MCV 91.7 MCH 33.5 H MCHC 36.5 H RDW 16.3 H Plt Count 225 MPV 11.3 H Immature Gran % 0.2 Neutrophils % 71.0 Lymphocytes % 17.6 Monocytes % 9.2 Eosinophils % 1.6 Basophils % 0.4 Absolute Neutrophils 6.67 Absolute Lymphocytes 1.66 Absolute Monocytes 0.87 H Absolute Eosinophils 0.15 Absolute Basophils 0.04 PT > 83.4 H INR > 8.8 H* APTT 69.9 H Sodium 131 L Potassium 3.8 Chloride 95 L Carbon Dioxide 25.0 Anion Gap 11.0 BUN 27 H Creatinine 1.31 H Estimated GFR/1.73 m2 54.74 Glucose 127 H Calcium 8.4 L Magnesium 1.2 L Total Bilirubin 16.2 H AST 227 H ALT 147 H Alkaline Phosphatase 768 H Troponin I < 0.05 Total Protein 7.8 Albumin 2.9 L Lipase 09/04/19 09/05/19 09/05/19 20:50 06:30 06:30 WBC RBC Hgb Hct MCV MCH MCHC RDW Plt Count MPV Immature Gran % Neutrophils % Lymphocytes % Monocytes % Eosinophils % Basophils % Absolute Neutrophils Absolute Lymphocytes Absolute Monocytes Absolute Eosinophils Absolute Basophils PT > 83.4 H INR > 8.8 H* APTT Sodium 133 L Potassium 3.4 L Chloride 96 L Carbon Dioxide 24.8 Anion Gap 12.2 H BUN 25 H Creatinine 1.08 Estimated GFR/1.73 m2 >= 60.00 Glucose 116 H Calcium 8.6 Magnesium 1.4 L Total Bilirubin 17.1 H AST 276 H ALT 168 H Alkaline Phosphatase Troponin I Total Protein Albumin Lipase 114 09/05/19 06:30 WBC 8.17 RBC 3.82 L Hgb 12.7 L Hct 35.7 L MCV 93.5 MCH 33.2 H MCHC 35.6 RDW 17.0 H Plt Count 215 MPV 11.8 H Immature Gran % Neutrophils % Lymphocytes % Monocytes % Eosinophils % Basophils % Absolute Neutrophils Absolute Lymphocytes Absolute Monocytes Absolute Eosinophils Absolute Basophils PT INR APTT Sodium Potassium Chloride Carbon Dioxide Anion Gap BUN Creatinine Estimated GFR/1.73 m2 Glucose Calcium Magnesium Total Bilirubin AST ALT Alkaline Phosphatase Troponin I Total Protein Albumin Lipase
[2019-09-05 10:10] VITALS: BP 131/80; PULSE 90; RESP 17; TEMP 36.8; O2SAT 96
[2019-09-05] MEDS: Pantoprazole 40 MG VIAL IVP (10:19)
[2019-09-05] MEDS: IMIPENEM/CILASTATIN 500 MG in Normal Saline 100 ML 200 MG IVPB (10:19)
--- NOTE | 2019-09-05 10:43 | INITIAL_ITS ---
- If Service Date Differs Date of service: 09/05/19 Time of Service: 11:00 Care Management Initial Assess REASON FOR HOSPITALIZATION:: Painless Jaundice; went to [facility] in [place] for an outpatient blood draw, was called later and told he is in liver failure and pt/inr was 15. PAST MEDICAL HISTORY/PAST SURGICAL HISTORY:: CHF, COPD, Diabetes, GERD, HTN, hyperlipidemia, obesity, PE. PREVIOUS FUNCTIONAL STATUS/SOCIAL/FAMILY SUPPORTS:: Remy resides in [place], [place] with his of 22 years, Jennifer. Jennifer has a daughter, four grandchildren and two great grandchildren who live in the other side of their duplex building. Remy has a daughter Melisa, and son José Luis, from his first marriage that reside locally and are supportive. Pt has been on disability for the last 7 years, receiving SSDI. Pt identifies that he is independent and able to manage his own needs, drives. Pt enjoys watching TV and going outdoors with his grand kid. During the summer months Remy enjoys using his pool at home. ADVANCE DIRECTIVES:: None on file at [facility]. Has patient been provided with information about the portal?: Yes Did the patient sign up for the portal?: No CODE STATUS:: Full Code INSURANCE COVERAGE / FINANCIAL ISSUES:: Medicare. [facility] CURRENT HOME/COMMUNITY SERVICES/EQUIPMENT:: [facility], W PRIMARY CARE PHYSICIAN:: Adelina Crespo APRN: [facility] POTENTIAL DISCHARGE NEEDS:: Transfer coordination, [facility] notification; care team planning. PATIENT/FAMILY EDUCATION NEEDS:: Review discharge instructions, discuss Ask Me Three. ANTICIPATED BARRIERS TO DISCHARGE:: Transfer bed availability. TRANSPORTATION:: TBD by disposition. PLAN:: [facility] (or if no bed availability to then seek placement at [facility]). CM provided coordination with the transfer center for provider to speak to provider. CM called the [facility] in [place] to identify PCP; CM faxed information to [facility] to update patient's chart. CM coordinated RN-RNCC contact to ensure medication reconcilation appropriate. CM reviewed admission paperwork and gathered signatures; provided to [facility]. CM continues to follow.
[2019-09-05] MEDS: Lactated Ringers 1,000 ML 200 ML IV (10:59)
--- NOTE | 2019-09-05 12:06 | W.PM.DS.N ---
Date of service: 09/05/19 Time of Service: 12:06 DS: Diagnosis Discharge Diagnosis (1) Painless jaundice: Start date: 09/05/19 Start time: 12:06 Status: Acute Asessment and Plan: Jaundice and icteric hx cirrohisis of liver, ascities, acute pancreatitis, INR greater than 8.8, tbili 17.1 with Ast 276 and ALT 168, Ct with fluid collection along anterolateral aspect of the liver possibly pancreatic pseudocyst or abscess. Being transferred to [facility] for further treatment (2) Supratherapeutic INR: Start date: 09/05/19 Start time: 12:06 Status: Acute Asessment and Plan: Elevated INR at greater than 8.8 by labs. Also with evice of pancreatitis. (3) Acute saddle pulmonary embolism: Start date: 09/05/19 Start time: 12:15 Status: Acute Asessment and Plan: Found last month on coumadin, on held at this time for supratheraputic level. Discharge Plan Disposition Patient Disposition: [facility] [place] Condition: Stable Discharge Details Chief Complaint: GenMedical Clinical Impression: Supratherapeutic INR, Transaminitis, Jaundice Reason For Visit: PAINLESS JAUNDICE Admit Date/Time: 09/04/19 22:58 Admit Provider: Sandoval Lou Attending Provider: Sandoval Lou Primary Care Provider: Adelina Crespo ED Provider: Radha Aguilera Hospital Course Hospital Course: 64 year old male with PMH of obesity of CHF, COPD, HTN, HLD, DM, GERD, cirrohsis, ascities, alcohol dependence admitted from [facility] ED for elevated INR at greater than 8.8, AST 230, ALT 139 Total bili-18.9 and indirect 14.1. He was admitted to m/s for further management. During course labs this morning revealing worsening AST/ALT, bili, INR continues to be elevated. Continue PO K and subcu K. Hemoglobin 12.7 down from 15.3 on last admission, 35.7 hct today hgb 12.7 and hct 35.7, sodium 133, k+ 3.4, creatinine improved from 1.31 to 1.08 mag on admission 1.2 up to 1.4, total steve up today at 17.1 and AST 276/ ALT 168. CT scan obtained reveals findings secondary to pancreatitis with secondary inflammatory changes of gastric antrum and duodenal sweep as well biliary and pancreatic ductal dilitation, neoplasm also included in differential, fluid collections along anterolateral aspect of liver possibly a pancreatic pseudocyst or abscess, cholelithiasis without evidence of choledocholithiasis, minimally obstructing 4 mm calculus in left UVJ, bilateral nonobstructing nephrolithasis. Surgery consulted they feel patient is at high risk for bleeding and he would benefit from higher level of care. Due to history and illness patient is being transferred to the [place]. At this time VS stable. Home Meds and New Rx's Prescriptions: No Action omeprazole 20 MG capsule,delayed release(DR/EC) 20 mg PO BID RF: 0 furosemide 40 MG tablet 40 mg PO DAILY RF: 0 sertraline 100 MG tablet 100 mg PO DAILY RF: 0 Foradil Aerolizer 1 PUFF capsule, w/inhalation device 1 cap Inhalation BID RF: 0 tamsulosin 0.4 MG capsule 0.4 mg PO DAILY RF: 0 metoprolol tartrate 25 MG tablet 25 mg PO DAILY RF: 0 albuterol sulfate [Proventil HFA] 1 PUFF HFA aerosol inhaler 1 puff PO PRN PRNRF: 0 spironolactone 100 MG tablet 150 mg PO DAILY Qty: 0 RF: 0 albuterol sulfate 2.5 MG/3 ML solution for nebulization 2.5 mg UPD Q2H PRN PRNRF: 0 warfarin 5 mg Tablet 5 mg PO DAILY RF: 0 Discharge Instructions Additional Instructions: Transfer to [place] for further management Activity:: Activity as Tolerated Equipment/Supplies:: No Equipment Needed Diet:: As Tolerated Discharge Orders Discharge Orders: Discharge Order (Routine); Ordered 09/05/19 Ordered By: Otilia Melvin DS: Summary Status at Discharge Functional status at discharge: bed bound Overall status at discharge: patient is not back to baseline Mental Status: mental status grossly normal Speech and Movement: speech and movement normal Mood: congruent mood Affect: normal affect Exam Narrative Exam Narrative: . HEENT grossly jaundiced; nck supple; lungs yareli; heart RRR w/o MRG' abomn sift and NT w/o HSM; extremities w/o edema; nuo ox3, non-foal, no asterixis Psych Mental Status: mental status grossly normal Speech and Movement: speech and movement normal Mood: congruent mood Affect: normal affect DS: Data Vitals/I&O Vitals and I&O: Vital Signs Temperature 36.8 C 09/05/19 10:10 Temperature Source Tympanic 09/05/19 10:10 Pulse 90 09/05/19 10:10 Pulse Rhythm Regular 09/05/19 10:42 Pulse 94 H 09/04/19 23:31 Respiratory Rate 17 09/05/19 10:10 Respiratory Effort Non-Labored 09/05/19 10:42 Respiratory Depth Normal 09/05/19 10:42 Respiratory Pattern Normal 09/05/19 10:42 Blood Pressure 131/80 09/05/19 10:10 Blood Pressure Mean 88 09/04/19 23:31 Pulse Oximetry 96 09/05/19 10:10 Oxygen Delivery Method Room Air 09/05/19 10:10 Oxygen Flow Rate 0 09/05/19 10:10 Pain Level 2 09/05/19 10:10 Intake & Output 09/04/19 09/05/19 09/05/19 23:59 11:59 23:59 Intake Total 1016.666 / 1016.666 Balance 1016.666 / 1016.666 Weight 139.253 kg 141.9 kg Intake: IV 1016.666 / 1016.666 Oral 0 / 0 Other: Comment VOID X 1 AND MISSED URINAL PER PT. PT SAID VOID WAS MEDIUM TO LARGE Voiding Methods Toilet Data Completed and Pending Completed studies during hospitalization [Text1]: FINDINGS: Lungs: The left lung base shows mild atelectatic changes. Liver: Normal. No mass. Gallbladder and bile ducts: There is a 2.8 cm gallstone in the gallbladder lumen. The common bile duct shows mild dilatation to 9 mm and tapers distally without evidence of choledocholithiasis. There is moderate intrahepatic biliary ductal dilatation. Pancreas: There is inflammatory stranding along the head of the pancreas and mild dilatation of the pancreatic duct. Spleen: Normal. No splenomegaly. Adrenals: The adrenal glands are normal. Kidneys and ureters: There are multiple bilateral renal collecting system calcifications, largest in the right kidney measuring 5.5 mm. In the left UVJ there is a minimally obstructing 4 mm calculus. Stomach and bowel: There is severe eccentric thickening of the wall of the gastric antrum with narrowing of the pylorus. There is thickening of the wall of the duodenum. There is inflammatory stranding in the retroperitoneal fat. There is no evidence of small bowel or colonic obstruction. Appendix: The appendix is not identified. Intraperitoneal space: Along the anterolateral surface of the liver and extending to the hepatic flexure, there is an elongated fluid collection measuring 10.4 x 2.2 x 5.2 cm. There is a small amount of free fluid tracking along the root of the mesentery. There is no evidence of free fluid in the pelvis. No line no free intraperitoneal air. Vasculature: There is moderate atherosclerotic calcification of the abdominal aorta and iliac arteries without aneurysm. Lymph nodes: There are nonenlarged common nonspecific retroperitoneal lymph nodes. Bladder: Unremarkable as visualized. Reproductive: Unremarkable as visualized. Bones/joints: The spine demonstrates moderate degenerative changes at multiple levels. Soft tissues: In the subcutaneous soft tissues of the anterior left hemipelvis, there is a 2.3 mm collection perhaps are the subcutaneous injection site, possible hematoma. IMPRESSION: 1. Findings may be secondary to pancreatitis with secondary inflammatory changes of the gastric antrum and duodenal sweep as well as biliary and pancreatic ductal dilatation. However, given severe thickening of the wall of the gastric antrum and pylorus, neoplasm is in the differential diagnosis and correlation with endoscopy is recommended. 2. A fluid collection along the anterolateral aspect of the liver, possibly a pancreatic pseudocyst or abscess. 3. Cholelithiasis without evidence of choledocholithiasis. 4. A minimally obstructing 4 mm calculus in the left UVJ. Bilateral nonobstructing nephrolithiasis. 5. A 2.3 cm fluid collection in the subcutaneous soft tissues of the left anterior hemipelvis suggestive of a hematoma the at an injection site. PELVIS: Bladder: Symmetric distention, no gross wall thickening. Bowel: No obstruction or bowel wall thickening. Peritoneal cavity: No ascites. There are increased areas of increased rounded density in the anterior abdominal wall likely representing injection sites. Bones: Degenerative changes are seen in the lumbar spine.. Reproductive organs: Within normal limits. Lymph nodes: Unremarkable. Impression: 1. Findings consistent with pancreatitis adjacent inflammation of the duodenum. There are gallstones as well as dilatation of the common bile duct and intrahepatic hepatic ducts. No common duct stone is seen. 2. Bilateral renal calculi. 4 millimeter stone at the left ureterovesical junction without significant left hydronephrosis. Labs on day of discharge: Labs from last 24 hours 0309/05/19 09/05/19 06:30 06:30 06:30 WBC 8.17 RBC 3.82 L Hgb 12.7 L Hct 35.7 L MCV 93.5 MCH 33.2 H MCHC 35.6 RDW 17.0 H Plt Count 215 MPV 11.8 H Immature Gran % Neutrophils % Lymphocytes % Monocytes % Eosinophils % Basophils % Absolute Neutrophils Absolute Lymphocytes Absolute Monocytes Absolute Eosinophils Absolute Basophils PT > 83.4 H INR > 8.8 H* APTT Sodium 133 L Potassium 3.4 L Chloride 96 L Carbon Dioxide 24.8 Anion Gap 12.2 H BUN 25 H Creatinine 1.08 Estimated GFR/1.73 m2 >= 60.00 Glucose 116 H Calcium 8.6 Magnesium 1.4 L Total Bilirubin 17.1 H AST 276 H ALT 168 H Alkaline Phosphatase Troponin I Total Protein Albumin Lipase COCO Titer COCO Titer 2 COCO Titer 3 COCO Interpretation Hepatitis A IgM Ab Hep Bs Antigen Hep B Core Total Ab Hepatitis C Antibody 09/04/19 09/04/19 09/04/19 20:50 20:50 20:50 WBC 9.41 RBC 3.73 L Hgb 12.5 L Hct 34.2 L MCV 91.7 MCH 33.5 H MCHC 36.5 H RDW 16.3 H Plt Count 225 MPV 11.3 H Immature Gran % 0.2 Neutrophils % 71.0 Lymphocytes % 17.6 Monocytes % 9.2 Eosinophils % 1.6 Basophils % 0.4 Absolute Neutrophils 6.67 Absolute Lymphocytes 1.66 Absolute Monocytes 0.87 H Absolute Eosinophils 0.15 Absolute Basophils 0.04 PT > 83.4 H INR > 8.8 H* APTT 69.9 H Sodium Potassium Chloride Carbon Dioxide Anion Gap BUN Creatinine Estimated GFR/1.73 m2 Glucose Calcium Magnesium Total Bilirubin AST ALT Alkaline Phosphatase Troponin I Total Protein Albumin Lipase 114 COCO Titer COCO Titer 2 COCO Titer 3 COCO Interpretation Hepatitis A IgM Ab Hep Bs Antigen Hep B Core Total Ab Hepatitis C Antibody 09/04/19 09/04/19 09/04/19 20:50 20:30 20:30 WBC RBC Hgb Hct MCV MCH MCHC RDW Plt Count MPV Immature Gran % Neutrophils % Lymphocytes % Monocytes % Eosinophils % Basophils % Absolute Neutrophils Absolute Lymphocytes Absolute Monocytes Absolute Eosinophils Absolute Basophils PT INR APTT Sodium 131 L Potassium 3.8 Chloride 95 L Carbon Dioxide 25.0 Anion Gap 11.0 BUN 27 H Creatinine 1.31 H Estimated GFR/1.73 m2 54.74 Glucose 127 H Calcium 8.4 L Magnesium 1.2 L Total Bilirubin 16.2 H AST 227 H ALT 147 H Alkaline Phosphatase 768 H Troponin I < 0.05 Total Protein 7.8 Albumin 2.9 L Lipase COCO Titer Pending COCO Titer 2 Pending COCO Titer 3 Pending COCO Interpretation Pending Hepatitis A IgM Ab Pending Hep Bs Antigen Pending Hep B Core Total Ab Pending Hepatitis C Antibody Pending [facility] Medical History CHF (congestive heart failure) (Chronic) COPD (chronic obstructive pulmonary disease) (Chronic) Diabetes (Chronic) GERD (gastroesophageal reflux disease) (Chronic) HTN (hypertension) (Chronic) Hx of hyperlipidemia (Acute) Obesity (Chronic) Pulmonary embolism (Chronic) jul 2019 Surgical History No significant past surgical history (Acute) Social History Smoking/Tobacco Use Status: Former Tobacco Use Alcohol Intake: former Drug use: Never Substance use type: does not use Details: last drink was half a pint last wednesday Do you feel safe at home: Yes Do you feel safe in your relationship?: Yes
[2019-09-05 12:40] VITALS: BP 152/74; PULSE 106; RESP 18; TEMP 36.6; O2SAT 97
[2019-09-06 11:36] LABS: Hepatitis A Antibody IgM Negative (Negative); Hepatitis B Core Antibody Negative (Negative); Hepatitis B surface Ag Negative (Negative); Hepatitis C Ab w Rflx HCV PCR Negative (Negative)
[2019-09-06 15:35] LABS: ANA Interpretation Positive (Negative); ANA Titer Pattern 1:640 Speckled
== END 2019-09-05 13:26 | disposition short-term general hospital (02) | DRG 947 ==
LOC: ER 23:32 → MS 09-05 00:32
PROVIDERS: Admitting Provider General Practice; Emergency Provider Physician Assistant; PCP Nurse Practitioner Primary Care; Visit Provider Internal Medicine
DX: R79.1 Abnormal coagulation profile (principal); I26.92 Saddle embolus of pulmonary artery without acute cor pulmonale; R17 Unspecified jaundice; Z68.42 Body mass index [BMI] 45.0-49.9, adult; K70.30 Alcoholic cirrhosis of liver without ascites; T45.515A Adverse effect of anticoagulants, initial encounter; Z79.01 Long term (current) use of anticoagulants; F10.20 Alcohol dependence, uncomplicated; R93.3 Abnormal findings on diagnostic imaging of other parts of digestive tract; J44.9 Chronic obstructive pulmonary disease, unspecified; E11.9 Type 2 diabetes mellitus without complications; I10 Essential (primary) hypertension; E66.9 Obesity, unspecified
CPT/HCPCS: 36415; 80048; 80053; 83690; 85027; 86704; 86709; 86803; 87340; 93005; 99222; 99239; 99285; 74177; 82247; 83735; 84450; 84460; 84484; 85025; 85610; 85730; 86038; 93010; 99218; 99221; 99284; J0743; J3430; J3490; Q9967

== ENCOUNTER 2019-09-11 16:56 | Outpatient (REF) | payer MEDICARE, OTHER, SELFPAY ==
[2019-09-11 18:51] LABS: PTT Activated 33.7 sec (21.0-31.4)
== END 2019-09-11 17:16 ==
LOC: LBN 16:56
PROVIDERS: PCP Nurse Practitioner Primary Care; Visit Provider Internal Medicine Gastroenterology
DX: I26.99 Other pulmonary embolism without acute cor pulmonale (principal); Z79.01 Long term (current) use of anticoagulants
CPT/HCPCS: 85730

== ENCOUNTER 2019-09-15 15:16 | Outpatient (REF) | payer MEDICARE, OTHER, SELFPAY ==
[2019-09-15 16:22] LABS: ALT 47 U/L (16-63); AST 71 U/L (15-37); Albumin 2.7 g/dL (3.4-5.0); Alkaline Phosphatase 460 U/L (46-116); Anion Gap 7.9 mmol/L (3-11); BUN 22 mg/dL (7-18); Bilirubin, Direct 8.23 mg/dL (0.00-0.20); Bilirubin, Total 9.9 mg/dL (0.2-1.0); CO2 28.1 mmol/L (21.0-32.0); CREATININE 0.89 mg/dL (0.70-1.30); Calcium 8.7 mg/dL (8.5-10.1); Chloride 99 mmol/L (98-107); Glucose 112 mg/dL (74-106); Potassium 3.7 mmol/L (3.5-5.1); Sodium 135 mmol/L (136-145); Total Protein 7.4 g/dL (6.4-8.2)
== END 2019-09-15 15:36 ==
LOC: LBN 15:16
PROVIDERS: PCP Nurse Practitioner Primary Care; Visit Provider Internal Medicine
DX: K83.1 Obstruction of bile duct (principal); I50.9 Heart failure, unspecified; R79.1 Abnormal coagulation profile
CPT/HCPCS: 80048; 80076

== ENCOUNTER 2019-09-18 12:51 | Outpatient (REF) | payer MEDICARE, SELFPAY ==
[2019-09-18 13:20] LABS: Abs Immature Grans 0.05 k/cumm (0.0-0.09); Absolute Basophil Count 0.04 k/cumm (0.0-0.2); Absolute Lymphocyte Count 2.25 k/cumm (1.2-3.4); Absolute Monocyte Count 0.76 k/cumm (0.11-0.7); Absolute Neutrophil Count 4.17 k/cumm (1.2-6.7); Basophils % 0.5; Eosinophils % 2.7; HCT 31.8 % (40.0-50.0); HGB 10.6 g/dL (13.5-17.5); Immature Grans % 0.7 %; Lymphocytes % 30.1; Mean Corp. HGB Concentration 33.3 g/dL (32.0-36.0); Mean Corpuscular Hemoglobin 33.4 pg (27.0-33.0); Mean Corpuscular Volume 100.3 fL (80-95); Mean Platelet Volume 11.9 fL (8.0-11.0); Monocytes % 10.2; Neutrophils % 55.8; Platelet Count 188 x1000/uL (130-400); RBC 3.17 m/cumm (4.50-6.00); RBC Distribution Width 20.1 % (11.8-14.1); White Blood Cell Count 7.47 k/cumm (4.4-10.8)
[2019-09-18 13:41] LABS: Anisocytosis 1+; Polychromasia Present
== END 2019-09-18 13:11 ==
LOC: LBN 12:51
PROVIDERS: PCP Nurse Practitioner Primary Care; Visit Provider Internal Medicine
DX: K74.60 Unspecified cirrhosis of liver (principal)
CPT/HCPCS: 85025

== ENCOUNTER 2019-12-17 13:36 | Inpatient (IN) | payer OTHER, SELFPAY ==
[2019-12-17 14:24] VITALS: BP 110/79; PULSE 137; RESP 20; TEMP 36.7; O2SAT 97
[2019-12-17 14:35] VITALS: BP 110/79; PULSE 133; RESP 20; TEMP 36.7; O2SAT 97
[2019-12-17] MEDS: Scopolamine 1 MG/3 DAYS PATCH TD (15:39)
[2019-12-17] MEDS: Trimethobenzamide 200 MG/2 ML VIAL IM ×2 (15:40→21:04)
[2019-12-17] MEDS: Pantoprazole 40 MG VIAL IVP (16:27)
[2019-12-17] MEDS: Normal Saline 1,000 ML 30 ML IV (16:27)
--- NOTE | 2019-12-17 16:51 | HPE_ITS ---
Date of service: 12/17/19 Time of Service: 14:00 Assessment and Plan Assessment and plan (1) Comfort measures only status: Status: Chronic Assessment and plan: Plan is to get his symptoms under control and then for him to return home. (2) Hematemesis: Status: Chronic Assessment and plan: Will give her protonix IV. Unable to keep down his prilosec, 20 mg bid, which he has been on for years, Abrupt cessation of medication just prior to n/v. (3) Unintentional weight loss: Status: Chronic Assessment and plan: Due to his cancer. On clear liquid diet currently. (4) Hospice care patient: Status: Chronic Assessment and plan: Here on symptom management status. Explained to Barbara and Jennifer it will likely take a few days to get his n/v under control. They plan for Barbara to go home as soon as he is comfortable. (5) Intractable nausea and vomiting: Status: Acute Assessment and plan: Will continue scopolamine patch, change to IV ondansetron, start Tigan IM, per recommendation of Pharmacist. Phenergan suppositories for now; may to switch to IV. Oral haldol prn. Oral lorazepam prn. Does not appear to be obstruction related as no evidence of feces in vomitus and present though hypoactive bowel sounds. Still having BMs. However, if still vomiting tomorrow, will consider NGT. Abdomen not distended at this time, but does have HYPOACTIVE bowel sounds. IV PPI to protect his stomach as much as possible. (6) Gallbladder cancer: Status: Chronic Assessment and plan: Diagnosed just 3 months ago. Rapid progression of disease. Life expectancy in weeks only. On fentanyl patches for pain control. History of Present Illness History of Present Illness Chief Complaint: intractable nausea/vomiting; hospice pt; gallbladder ca Narrative: Barbara is a 64 yo man on hospice for about 2 weeks. 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 He had esophageal cancer about 4 years ago and was considered cured. He presented with his gallbladder cancer with painless jaundice. He and his oncology team decided against aggressive treatment given the extent of his metastases. He does have bony pain from spine mets; he is on fentanyl 200 mcg to control this. Two days ago out of the blue he began vomiting. He has not had worsened abdominal pain. He has not had a return of his jaundice. He figures he has lost about 70 lbs in the last 6 months. He has no appetite. At home, with help from his hospice team and and step-daughter (she lives with Barbara and Jennifer), he has tried to control his symptoms. He has tried a scopolamine patch, scheduled haldol, scheduled ondansetron ODT, and compazine. He has taken liquid ativan. He has tried suppositories. Nothing has worked. He continues to have bowel movements, the last on the day prior to admission. He has not been able to have a meal in > 48 hrs. He has taken sips of water and alex ary. His vomitus is black colored. He has not had sandra hematemesis. He is vomiting today about every 20-30 minutes. He is open to inpatient hospitalization to control his symptoms. Review of Systems Narrative: see HPI All systems reviewed & are unremarkable except as noted in HPI and below Constitutional Constitutional: Reports fatigue, Reports frequent falls, Reports lethargy, Reports poor appetite, Reports weakness and Reports weight loss Eyes Eyes: Reports dry eyes and Reports requires corrective lenses ENT Ears, Nose, Mouth, and Throat: Reports abnormal hearing Cardiovascular Cardiovascular: Reports rapid heart rate, Reports lightheadedness, Reports palpitations, Reports dyspnea and Reports dyspnea on exertion Respiratory Respiratory: Reports dyspnea and Reports dyspnea on exertion Gastrointestinal Gastrointestinal: Reports early satiety, Reports dyspepsia, Reports nausea, Reports vomiting and Reports hematemesis Genitourinary Genitourinary: Reports difficulty urinating Musculoskeletal Musculoskeletal: Reports abnormal gait, Reports back pain, Reports atrophy and Reports muscle weakness (legs gave out and fell this am) Integumentary/Breasts Skin/Breast: Reports dry skin Comments: denies easy bruising Neurologic Neurologic: Reports abnormal hearing, Reports abnormal gait, Reports frequent falls and Reports weakness Psychiatric Psychiatric: Reports change in appetite, Reports hopelessness and Reports anhedonia Endocrine Endocrine: Reports fatigue and Reports palpitations [facility] Medical History (Updated 12/17/19 @ 17:21 by kEaterina Lui MD) Alcohol abuse, in remission (Acute) CHF (congestive heart failure) (Chronic) Comfort measures only status (Chronic) COPD (chronic obstructive pulmonary disease) (Chronic) Diabetes (Chronic) Gallbladder cancer (Chronic) GERD (gastroesophageal reflux disease) (Chronic) Hematemesis (Chronic) History of esophageal cancer (Chronic) 2016 History of smoking (Acute) Hospice care patient (Chronic) HTN (hypertension) (Chronic) Hx of hyperlipidemia (Acute) Intractable nausea and vomiting (Acute) Obesity (Chronic) Pulmonary embolism (Chronic) jul 2019 Unintentional weight loss (Chronic) 70 lbs in 6 mos Surgical History No significant past surgical history (Acute) Family History (Updated 12/17/19 @ 17:03 by Ekaterina Lui MD) Mother , age 80 from combination of breast cancer and Alzheimer's disease Dementia Breast cancer Father , age 41 from alcoholic cirrhosis Alcohol abuse Cirrhosis, alcoholic Brother , as infant No problems noted. Sister Family estrangement Sister Family estrangement Son No problems noted. Daughter No problems noted. Social History (Updated 12/17/19 @ 17:07 by Ekaterina Lui MD) Smoking/Tobacco Use Status: Former Tobacco Use Tobacco: How many years used: 25 Alcohol Intake: former Year quit: 2019 Drug use: Never Substance use type: does not use Details: last drink was in September 2019 Caregiver/Support person: Yes Household members: spouse Housing: house Number of Children: 2 Communication Needs: Hard of Hearing and Corrective Lenses Education Level: high school Do you need help understanding health information?: Always current occupation: retired food service clerk; [employer] What is your relationship status?: How often do you talk on the phone with friends or family?: twice per week How often do you get together with friends or relatives?: once per week Panel score (0-1 are the most socially isolated patients): 2 What type of physical activity do you participate in: none and sedentary li festyle Duration: < 15 minutes/day Frequency: daily Annita/Anglican: Restorationist Special annita needs: Yes (would like to see a social scientist during this admission; buttermaker continuous churn ok too) Agree to transfusion: No Do you feel safe at home: Yes Do you feel safe in your relationship?: Yes Additional Social history: Has been with Jennifer since 1985. x 20 years. Used to smoke until 2005. Quit drinking with diagnosis of gallbladder cancer. Very weak. Bed to commode only at home. Cannot walk. Meds Home Medications and Allergies Home Medications Medication Instructions Recorded Confirmed Type omeprazole 20 mg PO BID 08/18/12 09/04/19 History albuterol sulfate [Proventil HFA] 1 puff PO PRN PRN 09/02/15 09/04/19 History hydromorphone 2 mg tablet See Rx Instructions PO Q3H PRN #30 12/15/19 Rx tab MDD 16 tabs morphine concentrate 100 mg/5 mL 10 mg PO Q1H PRN PRN #30 ml MDD 12/16/19 Rx (20 mg/mL) oral solution 100 mg fentanyl 2 patch TD Q72H MDD 175 mcg 12/17/19 12/17/19 History haloperidol lactate 12/17/19 History lorazepam 2 mg/mL oral concentrate 1 mg PO Q4H PRN PRN #30 ml MDD 8 mg 12/17/19 Rx ondansetron 4 mg disintegrating 4 mg PO Q6H #30 tab 12/17/19 Rx tablet Allergies Allergy/AdvReac Type Severity Reaction Status Date / Time niacin AdvReac Mild flushed Unverified 09/04/19 20:40 MRI AdvReac Contraindic Uncoded 09/04/19 20:40 ated Exam Narrative Exam Narrative: Chronically ill appearing man, appears older than stated age, disheveled, with dried and recent black-gabriel colored watery vomitus on his shirt. A and O x 3. Eyes: anicteric HEENT: dry mm, lips chapped Neck: no LAD, No JVD Abd: obese, firm but not rigid, hypoactive bowel sounds, tender at epigastrium, palpable mass CV: tachycardia, no murmur Lungs: CTA B, no increased WOB EXT: cool, no edema Skin: no rashes, no easy bruising, does have scraggly clifford Neuro: A and O x 3; able to move all extremities Psych: no anxiety or depression Results Last Vital Signs Temp 98.1 F 12/17/19 14:35 Pulse 133 H 12/17/19 14:35 Resp 20 12/17/19 14:35 BP 110/79 12/17/19 14:35 Pulse Ox 97 12/17/19 14:35 COVID-19 Screening Have you,or household,traveled outside [place] in last 14 days?: No Had IN PERSON contact w/suspected or confirmed C-19 person: No
[2019-12-17] MEDS: LORazepam 2 MG/1 ML Oral Concentrate 1 MG PO (17:54)
[2019-12-17] MEDS: Promethazine 25 MG SUPP PR (18:51)
[2019-12-17 19:45] VITALS: BP 100/77; PULSE 92; RESP 26; TEMP 36.3; O2SAT 95
[2019-12-17] MEDS: Normal Saline 500 ML IV (20:45)
[2019-12-17 20:58] VITALS: BP 99/75; PULSE 123; RESP 20; TEMP 37.2; O2SAT 84
[2019-12-17] MEDS: Ondansetron 4 MG/2 ML VIAL 8 MG IVP (21:03)
[2019-12-18] MEDS: Normal Saline 1,000 ML 30 ML IV ×2 (00:27→06:49)
[2019-12-18] MEDS: Pantoprazole 40 MG VIAL IVP (03:52)
[2019-12-18] MEDS: Normal Saline Flush 10 ML SYR (03:59)
[2019-12-18] MEDS: ACETAMINOPHEN 1,000 MG/100 ML BTL 1000 MG (05:08)
--- NOTE | 2019-12-18 08:46 | NUR.NOTE ---
0600 12/18/19 GAVE 1000CC NS BOLUS FROM 849 LEFT IN CURRENT BAG THAT WAS RUNNING AT 30CC//HR INCREASED TO 1000CC THEN GAVE 149 FROM NEXT BAG AT 1000CC/HR THEN BACK TO 30CC FOR REST OF BOLUS.Nursing Note:
--- NOTE | 2019-12-18 08:49 | W.PM.DS.N ---
Date of service: 12/18/19 Time of Service: 10:00 DS: Diagnosis Discharge Diagnosis (1) Comfort measures only status: Status: Chronic Asessment and Plan: Actively dying. Plan is to get him home as he wishes. Life expectancy measured in hours to days. (2) Hematemesis: Status: Chronic Asessment and Plan: ongoing not sandra blood at this time did receive IV ppi unable to take oral meds (3) Hospice care patient: Status: Chronic Asessment and Plan: Hospice informed of return to home. Nurse daily visits. Jewelry Bench Worker to visit at home if possible. (4) Intractable nausea and vomiting: Status: Acute Asessment and Plan: None for almost 2 hrs this am; will send home with NGT to be placed by Dr Hurtado if needed later today. Will continue on rectal suppositories and scopolamine patch for nausea. Will not tolerate ODT zofran. (5) Gallbladder cancer: Status: Chronic Asessment and Plan: aggressive rapidly progressive will be COD (6) Dying care: Status: Acute Asessment and Plan: Expect Pat will later today due to mottling, delirium, lack of urine output, hypoxemia, tachycardia and tachypnea. Discharge Plan Disposition Patient Disposition: HOME W/HOME HEALTH SERVICE Condition: Deteriorating Discharge Details Reason For Visit: NAUSEA/VOMITING, HOSPICE PT, GALLBLADDER CA Admit Date/Time: 12/17/19 13:36 Admit Provider: Ekaterina Lui Attending Provider: Ekaterina Lui Primary Care Provider: Adelina Crespo Hospital Course Hospital Course: Admitted with intractable nausea and vomiting. Had NGT inserted last evening and had 2500 ccs of dark black/hematemesis out. Pulled out NGT this am around 7 am. +Mottling. + terminal delirum. + ARF with less than 50 ccs out in 8 hrs. Actively dying. Wish is to at home. Ambulance set to transfer COSMO around 10 am. informed and present. Will have daily RN from hospice. Dr Hurtado taking over for next 24 hrs. Home Meds and New Rx's Prescriptions: No Action hydromorphone 2 mg tablet See Rx Instructions PO Q3H MDD 16 tabs PRN (Reason: pain) Qty: 30 RF: 0 morphine concentrate 100 mg/5 mL (20 mg/mL) solution 10 mg PO Q1H PRN MDD 100 mg PRN (Reason: pain) Qty: 30 RF: 0 lorazepam 2 mg/mL concentrate 1 mg PO Q4H PRN MDD 8 mg PRN (Reason: nausea and vomiting) Qty: 30 RF: 1 ondansetron 4 mg tablet,disintegrating 4 mg PO Q6H Qty: 30 RF: 1 omeprazole 20 MG capsule,delayed release(DR/EC) 20 mg PO BID RF: 0 albuterol sulfate [Proventil HFA] 1 PUFF HFA aerosol inhaler 1 puff PO PRN PRNRF: 0 fentanyl 100 mcg/hr patch 72 hour 2 patch TD Q72H MDD 175 mcg RF: 0 haloperidol lactate 2 mg/mL Concentrate RF: 0 Discharge Instructions Additional Instructions: informed of imminence of Pat's . May en route. Diesel Powerplant Mechanic called . No answer yet. to call if NGT needed; sending her home with NGT and hospice ordering suction for home use from [facility]. Care Plan Goals: Keep him comfortable. Let him at home as he wishes. Activity:: bedbound Equipment/Supplies:: suction for NGT Diet:: As Tolerated Discharge Orders Discharge Orders: Discharge Order (Routine); Ordered 12/18/19 Ordered By: Ekaterina Lui DS: Summary Status at Discharge Functional status at discharge: bed bound Overall status at discharge: patient is not back to baseline Mental Status: other (delirious but not agitated) Speech and Movement: No speech clear, delayed speech and restless Mood: other (delirious but not agitated) Affect: indifferent Time Spent with Patient providing and/or coordinating discharge services: Greater than 30 minutes Exam Narrative Exam Narrative: Chronically ill appearing man, appears older than stated age, disheveled, with dried and recent black-gabriel colored watery vomitus on his shirt. Delirious. Eyes: anicteric HEENT: dry mm, lips chapped; teeth in poor condition. Neck: no LAD, No JVD Abd: obese, firm but not rigid, hypoactive bowel sounds, heard only one today, non tender at epigastrium, palpable mass CV: tachycardia, no murmur Lungs: CTA B, no increased WOB, + tachypnea to the 30s EXT: cool, no edema, MOTTLING significant both legs, thighs, abdomen Skin: no rashes, no easy bruising, does have scraggly clifford Neuro: A and O to self only; delirious; able to move all extremities Psych: no anxiety or depression but delirious so hard to tell Psych Mental Status: other (delirious but not agitated) Speech and Movement: speech not clear, delayed speech and restless Mood: other (delirious but not agitated) Affect: indifferent DS: Data Vitals/I&O Vitals and I&O: Vital Signs Temperature 99.0 F 12/17/19 20:58 Temperature Source Tympanic 12/17/19 20:58 Pulse 123 H 12/17/19 20:58 Pulse Rhythm Irregular 12/18/19 00:48 Respiratory Rate 12/17/19 20:58 Respiratory Effort 12/18/19 00:48 Respiratory Depth Shallow 12/18/19 00:48 Respiratory Pattern Irregular 12/18/19 00:48 Blood Pressure 99/75 L 12/17/19 20:58 Pulse Oximetry 84 L 12/17/19 20:58 Oxygen Delivery Method Room Air 12/17/19 20:58 Oxygen Flow Rate 0 12/17/19 20:58 Pain Level 8 12/17/19 14:24 Comment 12/17/19 19:45 Intake & Output 12/17/19 12/17/19 12/18/19 11:59 23:59 11:59 Intake Total 431 / 431 Output Total 500 / 500 2850 / 2850 Balance -500 / -500 -2419 / -2419 Intake: IV 431 / 431 Oral 0 / 0 Output: Gastric Drainage 2550 / 2550 Right Nare 2550 / 2550 Urine 0 / 0 Emesis 500 / 500 300 / 300 Other: Urine Color Yellow Yellow Urine Appearance Sediment Sediment Urine Odor Strong Comment pt declined urinary catheter @ this time SCAN ALMOST INPERCEPTABLE URINE OUTPUT. MD AWARE AT 0426 DURING NOC AND 1000CC NS BOLUS GIVEN AND STILL NO U/O MD AWARE WHEN SHE CAME IN AT 0725 Emesis Description Black Coffee Grounds Gastric Occult Blood Positive Right Nare Positive Voiding Methods Diaper Incontinent Data Completed and Pending Labs on day of discharge: Labs from last 24 hours 12/17/19 15:55 COVID-19 PCR Pending Nasopharyn COVID-19 PCR Pending Ref Test Perform Site Pending [facility] Medical History (Updated 12/18/19 @ 08:50 by Ekaterina Lui MD) Alcohol abuse, in remission (Acute) CHF (congestive heart failure) (Chronic) Comfort measures only status (Chronic) COPD (chronic obstructive pulmonary disease) (Chronic) Diabetes (Chronic) Dying care (Acute) Gallbladder cancer (Chronic) GERD (gastroesophageal reflux disease) (Chronic) Hematemesis (Chronic) History of esophageal cancer (Chronic) 2016 History of smoking (Acute) Hospice care patient (Chronic) HTN (hypertension) (Chronic) Hx of hyperlipidemia (Acute) Intractable nausea and vomiting (Acute) Obesity (Chronic) Pulmonary embolism (Chronic) jul 2019 Unintentional weight loss (Chronic) 70 lbs in 6 mos Surgical History No significant past surgical history (Acute) Family History (Updated 12/17/19 @ 17:03 by Ekaterina Lui MD) Mother , age 80 from combination of breast cancer and Alzheimer's disease Dementia Breast cancer Father , age 41 from alcoholic cirrhosis Alcohol abuse Cirrhosis, alcoholic Brother , as infant No problems noted. Sister Family estrangement Sister Family estrangement Son No problems noted. Daughter No problems noted. Social History (Updated 12/17/19 @ 17:07 by Ekaterina Lui MD) Smoking/Tobacco Use Status: Former Tobacco Use Tobacco: How many years used: 25 Alcohol Intake: former Year quit: 2019 Drug use: Never Substance use type: does not use Details: last drink was in September 2019 Caregiver/Support person: Yes Household members: spouse Housing: house Number of Children: 2 Communication Needs: Hard of Hearing and Corrective Lenses Education Level: high school Do you need help understanding health information?: Always current occupation: retired apartment maintenance worker; [employer], [place] What is your relationship status?: How often do you talk on the phone with friends or family?: twice per week How often do you get together with friends or relatives?: once per week Panel score (0-1 are the most socially isolated patients): 2 What type of physical activity do you participate in: none and sedentary lifestyle Duration: < 15 minutes/day Frequency: daily Annita/Episcopalian: Congregation Special annita needs: Yes (would like to see a trolley worker during this admission; boner meat ok too) Agree to transfusion: No Do you feel safe at home: Yes Do you feel safe in your relationship?: Yes Additional Social history: Has been with Jennifer since 1985. x 20 years. Used to smoke until 2006. Quit drinking with diagnosis of gallbladder cancer. Very weak. Bed to commode only at home. Cannot walk.
[2019-12-18] MEDS: Trimethobenzamide 200 MG/2 ML VIAL IM (09:47)
[2019-12-18] MEDS: Lidocaine 2% Viscous 15 ML CUP PO (10:20)
[2019-12-18] MEDS: Ondansetron 4 MG/2 ML VIAL 8 MG IVP (10:26)
--- NOTE | 2019-12-18 13:23 | CHAPLAIN ---
The clinical coordinator asked me to request a visit from the [facility], [place] for Remy before he was discharged home this morning. Fr. Tello came in to offer Remy anointing of the sick. Remy is a hospice patient who was admitted yesterday. His , Jennifer, was with him and went home for the night, as Remy suggested she do. Remy's had a rough night Jennifer said, and this morning Dr. Lui and Dr. Shultz began making plans to get him home because he has requested that he at home. Jennifer will have support from her daughter who lives in the same building. I called Rev. Richa Moore to let her know that Fr. Tello had visited this morning, and that Jennifer may want support from Richa. Remy is [employer] Orthodox, although not practicing at this time, and Jennifer is not [employer].
[2019-12-18 14:11] LABS: COVID-19 RT-PCR UVMMC Result Negative (Negative)
== END 2019-12-18 10:40 | disposition home health service (06) | DRG 378 ==
PROVIDERS: Admitting Provider Family Medicine; PCP Nurse Practitioner Primary Care; Visit Provider Family Medicine
DX: K92.0 Hematemesis (principal); C23 Malignant neoplasm of gallbladder; Z51.5 Encounter for palliative care; K63.4 Enteroptosis; R11.2 Nausea with vomiting, unspecified; Z85.01 Personal history of malignant neoplasm of esophagus
CPT/HCPCS: 99223; 99239; U0003; J0131; J2405; J3490